=== PATIENT | male | born 1955 | race Caucasian/White ===

== ENCOUNTER 2021-05-20 11:36 | Inpatient (IN) | payer OTHER, MEDICARE ==
--- NOTE | 2021-05-20 12:05 | EDM.PDOC ---
ED HPI GENERAL MEDICAL PROBLEM - General Chief Complaint: Respiratory Problem Stated Complaint: COUGHING, CHEST CONGESTION Time Seen by Provider: 05/20/21 11:46 Source of Information: Reports: Patient History Limitations: Reports: No Limitations - History of Present Illness INITIAL COMMENTS - FREE TEXT/NARRATIVE: Patient is a 66-year-old male history of diabetes who presents today for what he describes flulike symptoms. He states he has diffuse body aches dry cough and fatigue. Symptoms have been present for 2 days. He has not take any medication for this at home. Denies any chest pain abdominal pain states he still tolerating p.o. Bilateral Chest Pain Score (Numeric/FACES): 4 - Related Data Allergies Allergy/AdvReac Type Severity Reaction Status Date / Time No Known Allergies Allergy Verified 05/20/21 11:48 Home Meds: Home Meds Buprenorphine 15 mg DAILY 05/20/21 [History] Cholecalciferol (Vitamin D3) [Vitamin D3] 1 dose PO DAILY 05/20/21 [History] Citalopram [Citalopram HBr] 20 mg PO DAILY 05/20/21 [History] Dulaglutide [Trulicity] 3 mg PO DAILY 05/20/21 [History] Fluticasone Propionate [24 Hour Allergy] 1 dose PO DAILY 05/20/21 [History] Lactobacillus Acidophilus [Acidophilus Probiotic] 1 dose PO DAILY 05/20/21 [History] Melatonin 10 mg PO DAILY 05/20/21 [History] Metoprolol Succinate 50 mg PO DAILY 05/20/21 [History] Omeprazole Magnesium 20 mg PO DAILY 05/20/21 [History] Ubidecarenone [Coenzyme Q-10] 1 dose PO DAILY 05/20/21 [History] atorvaSTATin [Lipitor] 20 mg PO DAILY 05/20/21 [History] glipiZIDE [Glucotrol XL] 10 mg PO DAILY 05/20/21 [History] lisinopriL [Lisinopril] 2.5 mg PO DAILY 05/20/21 [History] traZODone 50 mg PO DAILY 05/20/21 [History] ED ROS GENERAL - Review of Systems Review Of Systems: See Below Constitutional: Reports: Malaise, Fatigue HEENT: Reports: No Symptoms Respiratory: Reports: Cough Cardiovascular: Reports: No Symptoms Endocrine: Reports: No Symptoms GI/Abdominal: Reports: No Symptoms : Reports: No Symptoms Musculoskeletal: Reports: No Symptoms Skin: Reports: No Symptoms Neurological: Reports: No Symptoms Psychiatric: Reports: No Symptoms Hematologic/Lymphatic: Reports: No Symptoms Immunologic: Reports: No Symptoms ED EXAM, GENERAL - Physical Exam Exam: See Below Exam Limited By: No Limitations General Appearance: Alert, WD/WN, No Apparent Distress Respiratory/Chest: No Respiratory Distress, Rhonchi Cardiovascular: Normal Peripheral Pulses, Regular Rate, Rhythm GI/Abdominal: Normal Bowel Sounds, Soft, Non-Tender Back Exam: Normal Inspection Extremities: Normal Inspection, Normal Range of Motion Neurological: Alert, Oriented, Normal Cognition, Normal Gait Course - Vital Signs Last Recorded V/S: Last Vital Signs Temp 97.8 F 05/20/21 11:59 Pulse 84 05/20/21 14:21 Resp 16 05/20/21 14:21 BP 137/90 05/20/21 14:21 Pulse Ox 97 05/20/21 14:21 - Orders/Labs/Meds Orders: Active Orders 24 hr Category Date Time Status Patient Status [ADT] Routine ADT 05/20/21 15:48 Ordered CULTURE BLOOD [BC] Stat Lab 05/20/21 15:39 Ordered CULTURE BLOOD [BC] Stat Lab 05/20/21 15:39 Ordered LACTIC ACID SEPSIS W/ REFLEX [LACTATE SEPSIS W/ REFLEX] Lab 05/20/21 15:22 Received [CHEM] Routine Azithromycin [Zithromax] 500 mg Med 05/20/21 15:45 Active Sodium Chloride 0.9% [Normal Saline (AdvBag)] 250 ml IV ONETIME Sodium Chloride 0.9% [Normal Saline] 1,000 ml Med 05/20/21 13:30 Active IV ASDIRECTED Blood Culture x2 Reflex Set [OM.PC] Stat Oth 05/20/21 15:39 Ordered Medication Orders Sodium Chloride (Normal Saline) 1,000 mls @ 1,000 mls/hr IV ASDIRECTED YOKASTA Last Admin: 05/20/21 13:40 Dose: 1,000 mls/hr Documented by: EDUARDO Azithromycin 500 mg/ Sodium (Chloride) 250 mls @ 250 mls/hr IV ONETIME YOKASTA Labs: Laboratory Tests 05/20/21 05/20/21 05/20/21 Range/Units 12:11 12:11 12:11 WBC 36.64 H (4.0-11.0) K/uL RBC 4.63 (4.50-5.90) M/uL Hgb 14.6 (13.0-17.0) g/dL Hct 41.0 (38.0-50.0) % MCV 88.6 (80.0-98.0) fL MCH 31.5 (27.0-32.0) pg MCHC 35.6 (31.0-37.0) g/dL RDW Std Deviation 43.6 (28.0-62.0) fl RDW Coeff of Sakshi 14 (11.0-15.0) % Plt Count 309 (150-400) K/uL MPV 9.30 (7.40-12.00) fL Add Manual Diff YES Neutrophils % (Manual) 74 (48.0-80.0) % Band Neutrophils % 14 % Lymphocytes % (Manual) 7 L (16.0-40.0) % Monocytes % (Manual) 5 (0.0-15.0) % Nucleated RBC % 0.1 /100WBC Absolute Seg Neuts 27.1 H (1.4-5.7) Band Neutrophils # 5.1 Lymphocytes # (Manual) 2.6 H (0.6-2.4) Monocytes # (Manual) 1.8 H (0.0-0.8) Nucleated RBCs # 0 K/uL INR 1.11 APTT 27.2 (18.6-31.3) SEC Fibrinogen 430 H (215-411) mg/dL Sodium 131 L (136-148) mmol/L Potassium 5.5 H (3.5-5.1) mmol/L Chloride 96 L (98-107) mmol/L Carbon Dioxide 20.1 L (21.0-32.0) mmol/L BUN 34 H (7.0-18.0) mg/dL Creatinine 3.0 H (0.8-1.3) mg/dL Est Cr Clr Drug Dosing 25.35 mL/min Estimated GFR (MDRD) 21.1 ml/min Glucose 244 H (74-106) mg/dL Calcium 9.3 (8.5-10.1) mg/dL Total Bilirubin 1.1 H (0.2-1.0) mg/dL AST 9 L (15-37) IU/L ALT 27 (14-63) IU/L Alkaline Phosphatase 69 (46-116) U/L Troponin I < 0.050 (0.000-0.056) ng/mL Total Protein 7.7 (6.4-8.2) g/dL Albumin 4.0 (3.4-5.0) g/dL Globulin 3.7 (2.6-4.0) g/dL Albumin/Globulin Ratio 1.1 (0.9-1.6) Lipase 74 (73-393) U/L Urine Color Urine Appearance Urine pH (5.0-8.0) Ur Specific [place] (1.001-1.035) Urine Protein (NEGATIVE) mg/dL Urine Glucose (UA) (NEGATIVE) mg/dL Urine Ketones (NEGATIVE) mg/dL Urine Occult Blood (NEGATIVE) Urine Nitrite (NEGATIVE) Urine Bilirubin (NEGATIVE) Urine Urobilinogen (<2.0) EU/dL Ur Leukocyte Esterase (NEGATIVE) U Hyaline Cast (Auto) (0-2/LPF) Urine RBC (0-2/HPF) Urine WBC (0-5/HPF) Ur Epithelial Cells (NONE-FEW) Amorphous Sediment (NEGATIVE) Urine Bacteria (NEGATIVE) Urine Mucus (NONE-MOD) SARS-CoV-2 RNA (LIZA) (NEGATIVE) 05/20/21 05/20/21 Range/Units 13:40 14:45 WBC (4.0-11.0) K/uL RBC (4.50-5.90) M/uL Hgb (13.0-17.0) g/dL Hct (38.0-50.0) % MCV (80.0-98.0) fL MCH (27.0-32.0) pg MCHC (31.0-37.0) g/dL RDW Std Deviation (28.0-62.0) fl RDW Coeff of Sakshi (11.0-15.0) % Plt Count (150-400) K/uL MPV (7.40-12.00) fL Add Manual Diff Neutrophils % (Manual) (48.0-80.0) % Band Neutrophils % % Lymphocytes % (Manual) (16.0-40.0) % Monocytes % (Manual) (0.0-15.0) % Nucleated RBC % /100WBC Absolute Seg Neuts (1.4-5.7) Band Neutrophils # Lymphocytes # (Manual) (0.6-2.4) Monocytes # (Manual) (0.0-0.8) Nucleated RBCs # K/uL INR APTT (18.6-31.3) SEC Fibrinogen (215-411) mg/dL Sodium (136-148) mmol/L Potassium (3.5-5.1) mmol/L Chloride (98-107) mmol/L Carbon Dioxide (21.0-32.0) mmol/L BUN (7.0-18.0) mg/dL Creatinine (0.8-1.3) mg/dL Est Cr Clr Drug Dosing mL/min Estimated GFR (MDRD) ml/min Glucose (74-106) mg/dL Calcium (8.5-10.1) mg/dL Total Bilirubin (0.2-1.0) mg/dL AST (15-37) IU/L ALT (14-63) IU/L Alkaline Phosphatase (46-116) U/L Troponin I (0.000-0.056) ng/mL Total Protein (6.4-8.2) g/dL Albumin (3.4-5.0) g/dL Globulin (2.6-4.0) g/dL Albumin/Globulin Ratio (0.9-1.6) Lipase (73-393) U/L Urine Color YELLOW Urine Appearance CLEAR Urine pH 5.5 (5.0-8.0) Ur Specific [place] 1.025 (1.001-1.035) Urine Protein 30 H (NEGATIVE) mg/dL Urine Glucose (UA) 250 H (NEGATIVE) mg/dL Urine Ketones TRACE H (NEGATIVE) mg/dL Urine Occult Blood SMALL H (NEGATIVE) Urine Nitrite NEGATIVE (NEGATIVE) Urine Bilirubin NEGATIVE (NEGATIVE) Urine Urobilinogen 0.2 (<2.0) EU/dL Ur Leukocyte Esterase NEGATIVE (NEGATIVE) U Hyaline Cast (Auto) 1-3 (0-2/LPF) Urine RBC 2-4 (0-2/HPF) Urine WBC 0-2 (0-5/HPF) Ur Epithelial Cells FEW (NONE-FEW) Amorphous Sediment LIGHT (NEGATIVE) Urine Bacteria 1+ H (NEGATIVE) Urine Mucus LIGHT (NONE-MOD) SARS-CoV-2 RNA (LIZA) NEGATIVE (NEGATIVE) Meds: Medications Generic Name Dose Route Start Last Admin Trade Name Freq PRN Reason Stop Dose Admin Sodium Chloride 1,000 mls @ 1,000 mls/hr 05/20/21 13:30 05/20/21 13:40 Normal Saline IV 1,000 mls/hr ASDIRECTED YOKASTA Administration Azithromycin 500 mg/ Sodium 250 mls @ 250 mls/hr 05/20/21 15:45 Chloride IV ONETIME YOKASTA Discontinued Medications Generic Name Dose Route Start Last Admin Trade Name David PRN Reason Stop Dose Admin Ceftriaxone Sodium 1 gm 05/20/21 15:38 Ceftriaxone 1 Gm Vial IVPUSH 05/20/21 15:39 ONETIME ONE Sterile Water Confirm 05/20/21 15:43 Sterile Water For Injection Administered 05/20/21 15:44 Dose 20 mls @ as directed .ROUTE .STK-MED ONE Sterile Water 20 ml 05/20/21 15:44 Water For Injection, Sterile 20 Ml Sdv INJECT 05/20/21 15:45 ONETIME ONE - Re-Assessments/Exams Free Text/Narrative Re-Assessment/Exam: 05/20/21 15:[address] shows possible pneumonia as noted base. Patient Covid negative but has elevated white count will be started on antibiotics and admitted to the hospital. Departure - Departure Time of Disposition: 15:49 Disposition: Admitted As Inpatient 67 Condition: Good Clinical Impression: Pneumonia - Discharge Information *PRESCRIPTION DRUG MONITORING PROGRAM REVIEWED*: Not Applicable *COPY OF PRESCRIPTION DRUG MONITORING REPORT IN PATIENT SANJIV: Not Applicable Referrals: PCP,Not In Area [Primary Care Provider] - Forms: ED Department Discharge Sepsis Event Note (ED) - Focused Exam Vital Signs: Vital Signs Temp Pulse Resp BP Pulse Ox 05/20/21 14:21 84 16 137/90 97 05/20/21 12:50 89 16 114/86 96 05/20/21 11:59 97.8 F 91 17 130/88 94 L - My Orders Last 24 Hours: My Active Orders 05/20/21 13:30 Sodium Chloride 0.9% [Normal Saline] 1,000 ml IV ASDIRECTED 05/20/21 15:39 CULTURE BLOOD [BC] Stat CULTURE BLOOD [BC] Stat Blood Culture x2 Reflex Set [OM.PC] Stat 05/20/21 15:45 Azithromycin [Zithromax] 500 mg Sodium Chloride 0.9% [Normal Saline (AdvBag)] 250 ml IV ONETIME 05/20/21 15:48 Patient Status [ADT] Routine - Assessment/Plan Last 24 Hours: My Active Orders 05/20/21 13:30 Sodium Chloride 0.9% [Normal Saline] 1,000 ml IV ASDIRECTED 05/20/21 15:39 CULTURE BLOOD [BC] Stat CULTURE BLOOD [BC] Stat Blood Culture x2 Reflex Set [OM.PC] Stat 05/20/21 15:45 Azithromycin [Zithromax] 500 mg Sodium Chloride 0.9% [Normal Saline (AdvBag)] 250 ml IV ONETIME 05/20/21 15:48 Patient Status [ADT] Routine Plan: Patient is a 66-year-old male who presents today for flulike symptoms body aches fatigue and cough. Patient has some rhonchi but is satting 95% on room air. We will obtain labs x-ray and reassess.
[2021-05-20 12:43] LABS: BLOOD UREA NITROGEN,BUN 34 mg/dL (7.0-18.0); CARBON DIOXIDE,CO2 20.1 mmol/L (21.0-32.0); CHLORIDE,CL 96 mmol/L (98-107); GLUCOSE RANDOM 244 mg/dL (74-106); LIPASE 74 U/L (73-393); POTASSIUM,K 5.5 mmol/L (3.5-5.1); SODIUM,NA 131 mmol/L (136-148)
--- NOTE | 2021-05-20 12:46 | CR ---
INDICATION: Cough. Bilateral rhonchi. TECHNIQUE: AP portable chest. COMPARISON: None. FINDINGS: Clear lungs. Normal heart size and pulmonary vascularity. Old posterior left rib fractures. IMPRESSION: No acute cardiopulmonary process identified. Dictated by Sherif Butts MD @ 05/20/2021 12:45:05 PM (Electronically Signed)
[2021-05-20] MEDS: Sodium Chloride 0.9% 1,000 ML IV SCH (13:40)
--- NOTE | 2021-05-20 15:36 | CT ---
Indication: Elevated white count. Technique: Noncontrast CT abdomen and pelvis Comparison: No comparison Findings: Heart size normal. No pericardial effusion. No pericardial effusion. Left basilar airspace consolidation. Small effusion. Unenhanced liver gallbladder pancreas adrenal glands are unremarkable. Spleen unremarkable no abdominal aortic aneurysm. Right nephrectomy. Left kidney unremarkable Prostate gland unremarkable. Urinary bladder decompressed with wall thickening. Abundant stool in the colon No obstruction Small fat containing inguinal hernias. No suspicious bony lesions. Old left posterior rib fracture Impression: 1. Left basilar dense airspace consolidation may represent pneumonia. 2. No acute findings in the abdomen or pelvis. Please note that all CT scans at this facility use dose modulation, iterative reconstruction, and/or weight-based dosing when appropriate to reduce radiation dose to as low as reasonably achievable. Dictated by Thais Ryan MD @ 05/20/2021 3:33:42 PM (Electronically Signed)
[2021-05-20] MEDS ORDERED: cefTRIAXone 1 GM Vial IVPUSH ONE (15:38)
[2021-05-20] MEDS ORDERED: Water For Injection, Sterile 20 ML ONE (15:43)
[2021-05-20] MEDS ORDERED: Water For Injection, Sterile 20 ML SDV INJECT ONE (15:44)
[2021-05-20] MEDS ORDERED: Azithromycin 500 MG in Sodium Chloride 0.9% 250 ML IV SCH (15:45)
[2021-05-20] MEDS ORDERED: Sodium Chloride 0.9% 1,000 ML IV ONE (16:23)
--- NOTE | 2021-05-20 16:32 | PCM.HP.2 ---
H&P History of Present Illness - General Date of Service: 05/20/21 Admit Problem/Dx: Admission Diagnosis/Problem Admission Diagnosis/Problem Pneumonia - History of Present Illness Initial Comments - Free Text/Narative: 66 yo male with pmh of DM, right nephrectomy, and HTN, who presented to the ED with one week of cold symptoms and several days worth of productive cough, shortness of breath, fever, chills and pain in the left upper abdomen. Patient was noted to have a WBC of 36,000, Creatinine of 3.[address] scan that report dense left basilar consolidation. Bilateral Chest Pain Score (Numeric/FACES): 4 Head Pain Score (Numeric/FACES): 8 - Related Data Allergies/Adverse Reactions: Allergies Allergy/AdvReac Type Severity Reaction Status Date / Time No Known Allergies Allergy Verified 05/20/21 16:57 Home Medications: Home Meds Cholecalciferol (Vitamin D3) [Vitamin D3] 1 dose PO DAILY 05/20/21 [History] Citalopram [Citalopram HBr] 20 mg PO DAILY 05/20/21 [History] Dulaglutide [Trulicity] 3 mg PO DAILY 05/20/21 [History] Lactobacillus Acidophilus [Acidophilus Probiotic] 1 dose PO DAILY 05/20/21 [History] Melatonin 10 mg PO BEDTIME 05/20/21 [History] Metoprolol Succinate 50 mg PO DAILY 05/20/21 [History] Omeprazole Magnesium 20 mg PO DAILY 05/20/21 [History] atorvaSTATin [Lipitor] 20 mg PO DAILY 05/20/21 [History] glipiZIDE [Glucotrol XL] 10 mg PO DAILY 05/20/21 [History] lisinopriL [Lisinopril] 2.5 mg PO DAILY 05/20/21 [History] traZODone 50 mg PO BEDTIME 05/20/21 [History] Past Medical History Cardiovascular History: Reports: Hypertension Other Genitourinary History: Patient had right kidney removed. Endocrine/Metabolic History: Reports: Diabetes, Type II - Past Surgical History GI Surgical History: Reports: Appendectomy Musculoskeletal Surgical History: Reports: Knee Replacement, Shoulder Surgery Social & Family History - Tobacco Use Tobacco Use Status *Q: Never Tobacco User - Recreational Drug Use Recreational Drug Use: No H&P Review of Systems - Review of Systems: Review Of Systems: Comprehensive ROS is negative, except as noted in HPI. Exam - Exam Exam: See Below - Vital Signs Vital Signs: Last Vital Signs Temp 36.6 C 05/20/21 11:59 Pulse 83 05/20/21 16:00 Resp 17 05/20/21 16:00 BP 132/89 05/20/21 16:00 Pulse Ox 96 05/20/21 16:00 Weight: 108.862 kg - Exam General: Alert, Oriented HEENT: Mucosa Moist & [place] Lungs: Clear to Auscultation, Normal Respiratory Effort Cardiovascular: Regular Rate, Regular Rhythm GI/Abdominal Exam: Normal Bowel Sounds, Soft, Non-Tender Extremities: Non-Tender, No Pedal Edema Skin: Warm, Dry, Intact Neurological: Cranial Nerves Intact - Patient Data Lab Results Last 24 hrs: Laboratory Results - last 24 hr 05/20/21 05/20/21 05/20/21 Range/Units 12:11 12:11 12:11 WBC 36.64 H (4.0-11.0) K/uL RBC 4.63 (4.50-5.90) M/uL Hgb 14.6 (13.0-17.0) g/dL Hct 41.0 (38.0-50.0) % MCV 88.6 (80.0-98.0) fL MCH 31.5 (27.0-32.0) pg MCHC 35.6 (31.0-37.0) g/dL RDW Std Deviation 43.6 (28.0-62.0) fl RDW Coeff of Sakshi 14 (11.0-15.0) % Plt Count 309 (150-400) K/uL MPV 9.30 (7.40-12.00) fL Add Manual Diff YES Neutrophils % (Manual) 74 (48.0-80.0) % Band Neutrophils % 14 % Lymphocytes % (Manual) 7 L (16.0-40.0) % Monocytes % (Manual) 5 (0.0-15.0) % Nucleated RBC % 0.1 /100WBC Absolute Seg Neuts 27.1 H (1.4-5.7) Band Neutrophils # 5.1 Lymphocytes # (Manual) 2.6 H (0.6-2.4) Monocytes # (Manual) 1.8 H (0.0-0.8) Nucleated RBCs # 0 K/uL INR 1.11 APTT 27.2 (18.6-31.3) SEC Fibrinogen 430 H (215-411) mg/dL Sodium 131 L (136-148) mmol/L Potassium 5.5 H (3.5-5.1) mmol/L Chloride 96 L (98-107) mmol/L Carbon Dioxide 20.1 L (21.0-32.0) mmol/L BUN 34 H (7.0-18.0) mg/dL Creatinine 3.0 H (0.8-1.3) mg/dL Est Cr Clr Drug Dosing 25.35 mL/min Estimated GFR (MDRD) 21.1 ml/min Glucose 244 H (74-106) mg/dL Lactic Acid (0.4-2.0) mmol/L Calcium 9.3 (8.5-10.1) mg/dL Total Bilirubin 1.1 H (0.2-1.0) mg/dL AST 9 L (15-37) IU/L ALT 27 (14-63) IU/L Alkaline Phosphatase 69 (46-116) U/L Troponin I < 0.050 (0.000-0.056) ng/mL Total Protein 7.7 (6.4-8.2) g/dL Albumin 4.0 (3.4-5.0) g/dL Globulin 3.7 (2.6-4.0) g/dL Albumin/Globulin Ratio 1.1 (0.9-1.6) Lipase 74 (73-393) U/L Urine Color Urine Appearance Urine pH (5.0-8.0) Ur Specific [place] (1.001-1.035) Urine Protein (NEGATIVE) mg/dL Urine Glucose (UA) (NEGATIVE) mg/dL Urine Ketones (NEGATIVE) mg/dL Urine Occult Blood (NEGATIVE) Urine Nitrite (NEGATIVE) Urine Bilirubin (NEGATIVE) Urine Urobilinogen (<2.0) EU/dL Ur Leukocyte Esterase (NEGATIVE) U Hyaline Cast (Auto) (0-2/LPF) Urine RBC (0-2/HPF) Urine WBC (0-5/HPF) Ur Epithelial Cells (NONE-FEW) Amorphous Sediment (NEGATIVE) Urine Bacteria (NEGATIVE) Urine Mucus (NONE-MOD) Acetaminophen ug/mL SARS-CoV-2 RNA (LIZA) (NEGATIVE) 05/20/21 05/20/2121 Range/Units 12:11 13:40 14:45 WBC (4.0-11.0) K/uL RBC (4.50-5.90) M/uL Hgb (13.0-17.0) g/dL Hct (38.0-50.0) % MCV (80.0-98.0) fL MCH (27.0-32.0) pg MCHC (31.0-37.0) g/dL RDW Std Deviation (28.0-62.0) fl RDW Coeff of Sakshi (11.0-15.0) % Plt Count (150-400) K/uL MPV (7.40-12.00) fL Add Manual Diff Neutrophils % (Manual) (48.0-80.0) % Band Neutrophils % % Lymphocytes % (Manual) (16.0-40.0) % Monocytes % (Manual) (0.0-15.0) % Nucleated RBC % /100WBC Absolute Seg Neuts (1.4-5.7) Band Neutrophils # Lymphocytes # (Manual) (0.6-2.4) Monocytes # (Manual) (0.0-0.8) Nucleated RBCs # K/uL INR APTT (18.6-31.3) SEC Fibrinogen (215-411) mg/dL Sodium (136-148) mmol/L Potassium (3.5-5.1) mmol/L Chloride (98-107) mmol/L Carbon Dioxide (21.0-32.0) mmol/L BUN (7.0-18.0) mg/dL Creatinine (0.8-1.3) mg/dL Est Cr Clr Drug Dosing mL/min Estimated GFR (MDRD) ml/min Glucose (74-106) mg/dL Lactic Acid (0.4-2.0) mmol/L Calcium (8.5-10.1) mg/dL Total Bilirubin (0.2-1.0) mg/dL AST (15-37) IU/L ALT (14-63) IU/L Alkaline Phosphatase (46-116) U/L Troponin I (0.000-0.056) ng/mL Total Protein (6.4-8.2) g/dL Albumin (3.4-5.0) g/dL Globulin (2.6-4.0) g/dL Albumin/Globulin Ratio (0.9-1.6) Lipase (73-393) U/L Urine Color YELLOW Urine Appearance CLEAR Urine pH 5.5 (5.0-8.0) Ur Specific [place] 1.025 (1.001-1.035) Urine Protein 30 H (NEGATIVE) mg/dL Urine Glucose (UA) 250 H (NEGATIVE) mg/dL Urine Ketones TRACE H (NEGATIVE) mg/dL Urine Occult Blood SMALL H (NEGATIVE) Urine Nitrite NEGATIVE (NEGATIVE) Urine Bilirubin NEGATIVE (NEGATIVE) Urine Urobilinogen 0.2 (<2.0) EU/dL Ur Leukocyte Esterase NEGATIVE (NEGATIVE) U Hyaline Cast (Auto) 1-3 (0-2/LPF) Urine RBC 2-4 (0-2/HPF) Urine WBC 0-2 (0-5/HPF) Ur Epithelial Cells FEW (NONE-FEW) Amorphous Sediment LIGHT (NEGATIVE) Urine Bacteria 1+ H (NEGATIVE) Urine Mucus LIGHT (NONE-MOD) Acetaminophen <2.0 ug/mL SARS-CoV-2 RNA (LIZA) NEGATIVE (NEGATIVE) 05/20/21 Range/Units 15:22 WBC (4.0-11.0) K/uL RBC (4.50-5.90) M/uL Hgb (13.0-17.0) g/dL Hct (38.0-50.0) % MCV (80.0-98.0) fL MCH (27.0-32.0) pg MCHC (31.0-37.0) g/dL RDW Std Deviation (28.0-62.0) fl RDW Coeff of Sakshi (11.0-15.0) % Plt Count (150-400) K/uL MPV (7.40-12.00) fL Add Manual Diff Neutrophils % (Manual) (48.0-80.0) % Band Neutrophils % % Lymphocytes % (Manual) (16.0-40.0) % Monocytes % (Manual) (0.0-15.0) % Nucleated RBC % /100WBC Absolute Seg Neuts (1.4-5.7) Band Neutrophils # Lymphocytes # (Manual) (0.6-2.4) Monocytes # (Manual) (0.0-0.8) Nucleated RBCs # K/uL INR APTT (18.6-31.3) SEC Fibrinogen (215-411) mg/dL Sodium (136-148) mmol/L Potassium (3.5-5.1) mmol/L Chloride (98-107) mmol/L Carbon Dioxide (21.0-32.0) mmol/L BUN (7.0-18.0) mg/dL Creatinine (0.8-1.3) mg/dL Est Cr Clr Drug Dosing mL/min Estimated GFR (MDRD) ml/min Glucose (74-106) mg/dL Lactic Acid 3.4 H* (0.4-2.0) mmol/L Calcium (8.5-10.1) mg/dL Total Bilirubin (0.2-1.0) mg/dL AST (15-37) IU/L ALT (14-63) IU/L Alkaline Phosphatase (46-116) U/L Troponin I (0.000-0.056) ng/mL Total Protein (6.4-8.2) g/dL Albumin (3.4-5.0) g/dL Globulin (2.6-4.0) g/dL Albumin/Globulin Ratio (0.9-1.6) Lipase (73-393) U/L Urine Color Urine Appearance Urine pH (5.0-8.0) Ur Specific [place] (1.001-1.035) Urine Protein (NEGATIVE) mg/dL Urine Glucose (UA) (NEGATIVE) mg/dL Urine Ketones (NEGATIVE) mg/dL Urine Occult Blood (NEGATIVE) Urine Nitrite (NEGATIVE) Urine Bilirubin (NEGATIVE) Urine Urobilinogen (<2.0) EU/dL Ur Leukocyte Esterase (NEGATIVE) U Hyaline Cast (Auto) (0-2/LPF) Urine RBC (0-2/HPF) Urine WBC (0-5/HPF) Ur Epithelial Cells (NONE-FEW) Amorphous Sediment (NEGATIVE) Urine Bacteria (NEGATIVE) Urine Mucus (NONE-MOD) Acetaminophen ug/mL SARS-CoV-2 RNA (LIZA) (NEGATIVE) Result Diagrams: 05/21/21 02:25 05/21/21 02:25 Eusebio Results Last 24 hrs: Microbiology 05/20/21 15:55 Anaerobic Blood Culture - Final Blood - Venous Sepsis Event Note - Evaluation Sepsis Screening Result: No Definite Risk - Focused Exam Vital Signs: Vital Signs Temp Pulse Resp BP Pulse Ox 05/20/21 16:00 83 17 132/89 96 05/20/21 15:26 81 16 129/87 96 05/20/21 14:21 84 16 137/90 97 05/20/21 12:50 89 16 114/86 96 05/20/21 11:59 36.6 C 91 17 130/88 94 L - Problem List (1) Pneumonia SNOMED Code(s): 095366968 ICD Code: J18.9 - PNEUMONIA, UNSPECIFIED ORGANISM Status: Acute Current Visit: Yes (2) Kidney disease SNOMED Code(s): 79668381 ICD Code: N28.9 - DISORDER OF KIDNEY AND URETER, UNSPECIFIED Status: Acute Current Visit: Yes Problem List Initiated/Reviewed/Updated: Yes Orders Last 24hrs: Active Orders 24 hr Category Date Time Status Patient Status [ADT] Routine ADT 05/20/21 15:48 Active Antiembolic Devices [RC] PER UNIT ROUTINE Care 05/20/21 16:25 Ordered Oxygen Therapy [RC] PRN Care 05/20/21 16:25 Ordered Up ad Alba [RC] ASDIRECTED Care 05/20/21 16:24 Ordered VTE/DVT Education [RC] PER UNIT ROUTINE Care 05/20/21 16:25 Ordered Vital Signs [RC] Q4H Care 05/20/21 16:25 Ordered [employer] Diet [DIET] Diet 05/20/21 Breakfast Ordered Retroperitoneal Comp [US] Routine Exams 05/20/21 16:19 Stop Req CBC WITH AUTO DIFF [HEME] AM Lab 05/21/21 05:11 Ordered COMPREHENSIVE METABOLIC PN,CMP [CHEM] AM Lab 05/21/21 05:11 Ordered CULTURE BLOOD [BC] Stat Lab 05/20/21 15:55 Results CULTURE BLOOD [BC] Stat Lab 05/20/21 16:05 Received REFLEX LACTIC ACID YES OR NO [CHEM] Routine Lab 05/20/21 16:04 Received Azithromycin [Zithromax] Med 05/21/21 16:23 Ordered 500 mg IV Q24H Azithromycin [Zithromax] 500 mg Med 05/20/21 15:45 Active Sodium Chloride 0.9% [Normal Saline (AdvBag)] 250 ml IV ONETIME Heparin Sodium Med 05/20/21 16:30 Ordered 5,000 units SUBCUT Q12H Sodium Chloride 0.9% [Normal Saline] 1,000 ml Med 05/20/21 16:23 Ordered IV .Bolus Sodium Chloride 0.9% [Normal Saline] 1,000 ml Med 05/20/21 13:30 Active IV ASDIRECTED cefTRIAXone [Rocephin] 1 gm Med 05/21/21 16:30 Ordered Sodium Chloride 0.9% [Normal Saline] 50 ml IV Q24H Blood Culture x2 Reflex Set [OM.PC] Stat Ot 05/20/21 15:39 Ordered Sequential Compression Device [OM.PC] Per Unit Routine Oth 05/20/21 16:25 Ordered Resuscitation Status Routine Resus Stat 05/20/21 16:24 Ordered Medication Orders Azithromycin (Azithromycin 500 Mg Vial) 500 mg IV Q24H [facility] Heparin Sodium (Porcine) (Heparin Sodium 5,000 Units/Ml Vial) 5,000 units SUBCUT Q12H [facility] Sodium Chloride (Normal Saline) 1,000 mls @ 1,000 mls/hr IV ASDIRECTED [facility] Last Admin: 05/20/21 13:40 Dose: 1,000 mls/hr Documented by: SCHOLA Azithromycin 500 mg/ Sodium (Chloride) 250 mls @ 250 mls/hr IV ONETIME [facility] Last Admin: 05/20/21 16:06 Dose: 250 mls/hr Documented by: SCHOLAC Sodium Chloride (Normal Saline) 1,000 mls @ 999 mls/hr IV .Bolus ONE Stop: 05/20/21 17:23 Ceftriaxone Sodium 1 gm/ (Sodium Chloride) 50 mls @ 100 mls/hr IV Q24H [facility] Assessment/Plan Comment:: 66 yo male admitted for community acquried pneumonia CAP: will treat with rocephin and azithromycin, cultures ordered suspected ccute on chronic kidney disease: Will hydrate with IV fluids, no obstruction seen on CT.
[2021-05-20] MEDS ORDERED: Glucagon,Human Recombinant 1 MG Vial IM PRN (16:39)
[2021-05-20] MEDS ORDERED: 50% Dextrose in Water 50 ML Syringe IVPUSH PRN (16:39)
[2021-05-20] MEDS ORDERED: Pneumococcal 23-Valent Conjugate Vaccine 0.5 ML Syringe IM ONE (16:49)
[2021-05-20] MEDS: Insulin Aspart 100 Units/ML 3 ML Pen SUBCUT SCH (17:07)
[2021-05-20] MEDS: Acetaminophen 325 MG Tab PO PRN (17:30)
[2021-05-20] MEDS ORDERED: Sodium Chloride 0.9% 1,000 ML IV SCH (18:00)
[2021-05-20] MEDS: Heparin Sodium 5,000 Units/ML Vial SUBCUT SCH (20:44)
[2021-05-20] MEDS ORDERED: Sodium Chloride 0.9% 500 ML IV ONE (22:13)
[2021-05-21 03:11] LABS: CARBON DIOXIDE,CO2 23.5 mmol/L (21.0-32.0); POTASSIUM,K 4.2 mmol/L (3.5-5.1)
[2021-05-21] MEDS: Lactated Ringers 1,000 ML IV SCH ×3 (04:19→23:26)
[2021-05-21] MEDS: Insulin Aspart 100 Units/ML 3 ML Pen SUBCUT SCH ×3 (08:21→17:52)
[2021-05-21] MEDS: Heparin Sodium 5,000 Units/ML Vial SUBCUT SCH ×2 (08:27→20:50)
[2021-05-21] MEDS ORDERED: Pneumococcal 23-Valent Conjugate Vaccine 0.5 ML Syringe IM ONE (09:00)
[2021-05-21] MEDS: Albuterol/Ipratropium 3.0-0.5 MG/3 ML Neb Soln NEB SCH ×2 (10:38→13:00)
[2021-05-21] MEDS: Metoprolol Succinate 50 MG Tab.ER PO SCH (10:51)
[2021-05-21] MEDS: atorvaSTATin 20 MG Tab PO SCH (10:52)
[2021-05-21] MEDS: Citalopram 20 MG Tab PO SCH (10:52)
[2021-05-21] MEDS: Sodium Chloride 0.9% 1,000 ML IV SCH (11:48)
[2021-05-21] MEDS ORDERED: Ipratropium 0.02% 0.5 MG/2.5 ML Neb Soln NEB PRN (14:34)
[2021-05-21] MEDS: Morphine 2 MG/ML SYRINGE IVPUSH PRN (15:24)
[2021-05-21] MEDS ORDERED: cefTRIAXone 1 GM in Sodium Chloride 0.9% 50 ML IV SCH (15:30)
--- NOTE | 2021-05-21 15:38 | PCM.PN ---
<Diane Trotter - Last Filed: 05/21/21 15:33> - General Info Date of Service: 05/21/21 Subjective Update: The patient is a 66-year-old male with a significant past medical history of hypertension, diabetes mellitus, and a right nephrectomy, who was admitted due to community acquired pneumonia. Upon interview today the patient admits his breathing is much better and he is coughing less sputum than previously which is clear in color. However, the patient is complaining of thoracic level back pain which is 7 out of 10 in intensity, dull in nature, and nonradiating. - Review of Systems General: Denies: Fever, Fatigue, Chills Pulmonary: Reports: Cough. Denies: Shortness of Breath, Pleuritic Chest Pain Cardiovascular: Denies: Chest Pain, Palpitations Gastrointestinal: Denies: Abdominal Pain, Diarrhea, Nausea, Vomiting Musculoskeletal: Reports: Back Pain - Patient Data Vitals - Most Recent: Last Vital Signs Temp 98.8 F 05/21/21 07:51 Pulse 78 05/21/21 10:51 Resp 16 05/21/21 07:51 BP 139/90 05/21/21 10:51 Pulse Ox 94 L 05/21/21 07:51 Weight - Most Recent: 104.236 kg I&O - Last 24 Hours: Intake & Output 05/21/21 05/21/21 05/21/21 06:59 14:59 22:59 Intake Total 2650 Output Total 1250 Balance 1400 Lab Results Last 24 Hours: Laboratory Results - last 24 hr 05/20/21 05/20/21 05/20/21 Range/Units 12:11 15:22 16:54 WBC (4.0-11.0) K/uL RBC (4.50-5.90) M/uL Hgb (13.0-17.0) g/dL Hct (38.0-50.0) % MCV (80.0-98.0) fL MCH (27.0-32.0) pg MCHC (31.0-37.0) g/dL RDW Std Deviation (28.0-62.0) fl RDW Coeff of Sakshi (11.0-15.0) % Plt Count (150-400) K/uL MPV (7.40-12.00) fL Add Manual Diff Neutrophils % (Manual) (48.0-80.0) % Band Neutrophils % % Lymphocytes % (Manual) (16.0-40.0) % Monocytes % (Manual) (0.0-15.0) % Metamyelocytes % % Nucleated RBC % /100WBC Absolute Seg Neuts (1.4-5.7) Band Neutrophils # Lymphocytes # (Manual) (0.6-2.4) Monocytes # (Manual) (0.0-0.8) Absolute Metamyelocyte Nucleated RBCs # K/uL Sodium (136-148) mmol/L Potassium (3.5-5.1) mmol/L Chloride (98-107) mmol/L Carbon Dioxide (21.0-32.0) mmol/L BUN (7.0-18.0) mg/dL Creatinine (0.8-1.3) mg/dL Est Cr Clr Drug Dosing mL/min Estimated GFR (MDRD) ml/min Glucose (74-106) mg/dL POC Glucose 184 H (70-99) mg/dL Lactic Acid 3.4 H* (0.4-2.0) mmol/L Calcium (8.5-10.1) mg/dL Total Bilirubin (0.2-1.0) mg/dL AST (15-37) IU/L ALT (14-63) IU/L Alkaline Phosphatase (46-116) U/L Total Protein (6.4-8.2) g/dL Albumin (3.4-5.0) g/dL Globulin (2.6-4.0) g/dL Albumin/Globulin Ratio (0.9-1.6) Acetaminophen <2.0 ug/mL 05/20/21 05/21/21 05/21/21 Range/Units 20:23 02:25 02:25 WBC 27.16 H (4.0-11.0) K/uL RBC 3.94 L (4.50-5.90) M/uL Hgb 12.2 L (13.0-17.0) g/dL Hct 35.0 L (38.0-50.0) % MCV 88.8 (80.0-98.0) fL MCH 31.0 (27.0-32.0) pg MCHC 34.9 (31.0-37.0) g/dL RDW Std Deviation 44.1 (28.0-62.0) fl RDW Coeff of Sakshi 14 (11.0-15.0) % Plt Count 255 (150-400) K/uL MPV 9.20 (7.40-12.00) fL Add Manual Diff YES Neutrophils % (Manual) 86 H (48.0-80.0) % Band Neutrophils % 7 % Lymphocytes % (Manual) 2 L (16.0-40.0) % Monocytes % (Manual) 3 (0.0-15.0) % Metamyelocytes % 2 % Nucleated RBC % 0.0 /100WBC Absolute Seg Neuts 23.4 H (1.4-5.7) Band Neutrophils # 1.9 Lymphocytes # (Manual) 0.5 L (0.6-2.4) Monocytes # (Manual) 0.8 (0.0-0.8) Absolute Metamyelocyte 0.5 Nucleated RBCs # 0 K/uL Sodium 135 L (136-148) mmol/L Potassium 4.2 (3.5-5.1) mmol/L Chloride 101 (98-107) mmol/L Carbon Dioxide 23.5 (21.0-32.0) mmol/L BUN 30 H (7.0-18.0) mg/dL Creatinine 2.4 H (0.8-1.3) mg/dL Est Cr Clr Drug Dosing 31.68 mL/min Estimated GFR (MDRD) 27.3 ml/min Glucose 150 H (74-106) mg/dL POC Glucose (70-99) mg/dL Lactic Acid 2.4 H* (0.4-2.0) mmol/L Calcium 8.7 (8.5-10.1) mg/dL Total Bilirubin 0.6 (0.2-1.0) mg/dL AST 12 L (15-37) IU/L ALT 21 (14-63) IU/L Alkaline Phosphatase 59 (46-116) U/L Total Protein 6.7 (6.4-8.2) g/dL Albumin 3.2 L (3.4-5.0) g/dL Globulin 3.5 (2.6-4.0) g/dL Albumin/Globulin Ratio 0.9 (0.9-1.6) Acetaminophen ug/mL 05/21/21 05/21/21 Range/Units 02:25 06:21 WBC (4.0-11.0) K/uL RBC (4.50-5.90) M/uL Hgb (13.0-17.0) g/dL Hct (38.0-50.0) % MCV (80.0-98.0) fL MCH (27.0-32.0) pg MCHC (31.0-37.0) g/dL RDW Std Deviation (28.0-62.0) fl RDW Coeff of Sakshi (11.0-15.0) % Plt Count (150-400) K/uL MPV (7.40-12.00) fL Add Manual Diff Neutrophils % (Manual) (48.0-80.0) % Band Neutrophils % % Lymphocytes % (Manual) (16.0-40.0) % Monocytes % (Manual) (0.0-15.0) % Metamyelocytes % % Nucleated RBC % /100WBC Absolute Seg Neuts (1.4-5.7) Band Neutrophils # Lymphocytes # (Manual) (0.6-2.4) Monocytes # (Manual) (0.0-0.8) Absolute Metamyelocyte Nucleated RBCs # K/uL Sodium (136-148) mmol/L Potassium (3.5-5.1) mmol/L Chloride (98-107) mmol/L Carbon Dioxide (21.0-32.0) mmol/L BUN (7.0-18.0) mg/dL Creatinine (0.8-1.3) mg/dL Est Cr Clr Drug Dosing mL/min Estimated GFR (MDRD) ml/min Glucose (74-106) mg/dL POC Glucose 153 H (70-99) mg/dL Lactic Acid 1.4 (0.4-2.0) mmol/L Calcium (8.5-10.1) mg/dL Total Bilirubin (0.2-1.0) mg/dL AST (15-37) IU/L ALT (14-63) IU/L Alkaline Phosphatase (46-116) U/L Total Protein (6.4-8.2) g/dL Albumin (3.4-5.0) g/dL Globulin (2.6-4.0) g/dL Albumin/Globulin Ratio (0.9-1.6) Acetaminophen ug/mL Eusebio Results Last 24 Hours: Microbiology 05/20/21 15:55 Anaerobic Blood Culture - Final Blood - Venous Med Orders - Current: Current Medications Acetaminophen (Acetaminophen 325 Mg Tab) 325 mg PO Q6H PRN PRN Reason: Pain Last Admin: 05/20/21 17:30 Dose: 325 mg Documented by: Acidophilus/Pectin (Acidophilus With [place] Pectin Tab) 1 tab PO DAILY [facility] Atorvastatin Calcium (Atorvastatin 20 Mg Tab) 20 mg PO DAILY [facility] Last Admin: 05/21/21 10:52 Dose: 20 mg Documented by: Citalopram Hydrobromide (Citalopram 20 Mg Tab) 20 mg PO DAILY [facility] Last Admin: 05/21/21 10:52 Dose: 20 mg Documented by: Dextrose/Water (50% Dextrose In Water 50 Ml Syringe) 50 ml IVPUSH ASDIRECTED PRN PRN Reason: Hypoglycemia Glucagon (Glucagon,Human Recombinant 1 Mg Vial) 1 mg IM ASDIRECTED PRN PRN Reason: Hypoglycemia Heparin Sodium (Porcine) (Heparin Sodium 5,000 Units/Ml Vial) 5,000 units SUBCUT Q12H [facility] Last Admin: 05/21/21 08:27 Dose: 5,000 units Documented by: Sodium Chloride (Normal Saline) 1,000 mls @ 1,000 mls/hr IV ASDIRECTED [facility] Last Infusion: 05/20/21 14:40 Dose: Infused Documented by: Ceftriaxone Sodium/Dextrose (Rocephin In Dextrose,Iso-Osm 1 Gm/50 Ml) 50 mls @ 100 mls/hr IV Q24H [facility] Last Admin: 05/21/21 15:24 Dose: 100 mls/hr Documented by: Azithromycin 500 mg/ Sodium (Chloride) 250 mls @ 250 mls/hr IV Q24H [facility] Lactated Ringer's (Ringers, Lactated) 1,000 mls @ 125 mls/hr IV ASDIRECTED [facility] Last Admin: 05/21/21 11:51 Dose: 125 mls/hr Documented by: Insulin Aspart (Insulin Aspart 100 Units/Ml 3 Ml Pen) 0 unit SUBCUT TIDAC [facility]; Protocol Last Admin: 05/21/21 11:47 Dose: 1 unit Documented by: Ipratropium [place] (Ipratropium 0.02% 0.5 Mg/2.5 Ml Neb Soln) 0.5 mg NEB Q6H [employer] PRN PRN Reason: wheezing/dyspnea Melatonin (Melatonin 3 Mg Tab) 9 mg PO BEDTIME [facility] Metoprolol Succinate (Metoprolol Succinate 50 Mg Tab.Er) 50 mg PO DAILY [facility] Last Admin: 05/21/21 10:51 Dose: 50 mg Documented by: Morphine Sulfate (Morphine 2 Mg/Ml Syringe) 1 mg IVPUSH Q4H PRN PRN Reason: Pain Last Admin: 05/21/21 15:24 Dose: 1 mg Documented by: Trazodone HCl (Trazodone 50 Mg Tab) 50 mg PO BEDTIME [facility] Discontinued Medications Albuterol/Ipratropium (Albuterol/Ipratropium 3.0-0.5 Mg/3 Ml Neb Soln) 3 ml NEB Q4HRRT [facility] Last Admin: 05/21/21 13:00 Dose: 3 ml Documented by: Azithromycin (Azithromycin 500 Mg Vial) 500 mg IV Q24H [facility] Ceftriaxone Sodium (Ceftriaxone 1 Gm Vial) 1 gm IVPUSH ONETIME ONE Stop: 05/20/21 15:39 Last Admin: 05/20/21 16:05 Dose: 1 gm Documented by: Azithromycin 500 mg/ Sodium (Chloride) 250 mls @ 250 mls/hr IV ONETIME [facility] Last Admin: 05/20/21 16:06 Dose: 250 mls/hr Documented by: Sterile Water (Sterile Water For Injection) Confirm Administered Dose 20 mls @ as directed .ROUTE .STK-MED ONE Stop: 05/20/21 15:44 Last Admin: 05/20/21 15:56 Dose: Not Given Documented by: Sodium Chloride (Normal Saline) 1,000 mls @ 999 mls/hr IV .Bolus ONE Stop: 05/20/21 17:23 Last Admin: 05/20/21 17:07 Dose: 999 mls/hr Documented by: Ceftriaxone Sodium 1 gm/ (Sodium Chloride) 50 mls @ 100 mls/hr IV Q24H [facility] Sodium Chloride (Normal Saline) 1,000 mls @ 125 mls/hr IV ASDIRECTED [facility] Last Admin: 05/20/21 17:09 Dose: 125 mls/hr Documented by: Sodium Chloride (Normal Saline) 500 mls @ 999 mls/hr IV BOLUS ONE Stop: 05/20/21 22:43 Last Admin: 05/20/21 23:02 Dose: 999 mls/hr Documented by: Pneumococcal Polyvalent Vaccine (Pneumococcal 23-Valent Conjugate Vaccine 0.5 Ml Syringe) 25 mcg IM .ONCE ONE Stop: 05/21/21 09:01 Sterile Water (Water For Injection, Sterile 20 Ml Sdv) 20 ml INJECT ONETIME ONE Stop: 05/20/21 15:45 Last Admin: 05/20/21 16:05 Dose: 20 ml Documented by: - Exam General: Alert, Oriented, Cooperative Lungs: Rhonchi, Wheezing Cardiovascular: Regular Rate, Regular Rhythm, No Murmurs GI/Abdominal Exam: Normal Bowel Sounds, Soft, Non-Tender - Patient Data Lab Results Last 24 hrs: Laboratory Results - last 24 hr 05/20/21 05/20/21 05/20/21 Range/Units 12:11 15:22 16:54 WBC (4.0-11.0) K/uL RBC (4.50-5.90) M/uL Hgb (13.0-17.0) g/dL Hct (38.0-50.0) % MCV (80.0-98.0) fL MCH (27.0-32.0) pg MCHC (31.0-37.0) g/dL RDW Std Deviation (28.0-62.0) fl RDW Coeff of Sakshi (11.0-15.0) % Plt Count (150-400) K/uL MPV (7.40-12.00) fL Add Manual Diff Neutrophils % (Manual) (48.0-80.0) % Band Neutrophils % % Lymphocytes % (Manual) (16.0-40.0) % Monocytes % (Manual) (0.0-15.0) % Metamyelocytes % % Nucleated RBC % /100WBC Absolute Seg Neuts (1.4-5.7) Band Neutrophils # Lymphocytes # (Manual) (0.6-2.4) Monocytes # (Manual) (0.0-0.8) Absolute Metamyelocyte Nucleated RBCs # K/uL Sodium (136-148) mmol/L Potassium (3.5-5.1) mmol/L Chloride (98-107) mmol/L Carbon Dioxide (21.0-32.0) mmol/L BUN (7.0-18.0) mg/dL Creatinine (0.8-1.3) mg/dL Est Cr Clr Drug Dosing mL/min Estimated GFR (MDRD) ml/min Glucose (74-106) mg/dL POC Glucose 184 H (70-99) mg/dL Lactic Acid 3.4 H* (0.4-2.0) mmol/L Calcium (8.5-10.1) mg/dL Total Bilirubin (0.2-1.0) mg/dL AST (15-37) IU/L ALT (14-63) IU/L Alkaline Phosphatase (46-116) U/L Total Protein (6.4-8.2) g/dL Albumin (3.4-5.0) g/dL Globulin (2.6-4.0) g/dL Albumin/Globulin Ratio (0.9-1.6) Acetaminophen <2.0 ug/mL 05/20/21 05/21/21 05/21/21 Range/Units 20:23 02:25 02:25 WBC 27.16 H (4.0-11.0) K/uL RBC 3.94 L (4.50-5.90) M/uL Hgb 12.2 L (13.0-17.0) g/dL Hct 35.0 L (38.0-50.0) % MCV 88.8 (80.0-98.0) fL MCH 31.0 (27.0-32.0) pg MCHC 34.9 (31.0-37.0) g/dL RDW Std Deviation 44.1 (28.0-62.0) fl RDW Coeff of Sakshi 14 (11.0-15.0) % Plt Count 255 (150-400) K/uL MPV 9.20 (7.40-12.00) fL Add Manual Diff YES Neutrophils % (Manual) 86 H (48.0-80.0) % Band Neutrophils % 7 % Lymphocytes % (Manual) 2 L (16.0-40.0) % Monocytes % (Manual) 3 (0.0-15.0) % Metamyelocytes % 2 % Nucleated RBC % 0.0 /100WBC Absolute Seg Neuts 23.4 H (1.4-5.7) Band Neutrophils # 1.9 Lymphocytes # (Manual) 0.5 L (0.6-2.4) Monocytes # (Manual) 0.8 (0.0-0.8) Absolute Metamyelocyte 0.5 Nucleated RBCs # 0 K/uL Sodium 135 L (136-148) mmol/L Potassium 4.2 (3.5-5.1) mmol/L Chloride 101 (98-107) mmol/L Carbon Dioxide 23.5 (21.0-32.0) mmol/L BUN 30 H (7.0-18.0) mg/dL Creatinine 2.4 H (0.8-1.3) mg/dL Est Cr Clr Drug Dosing 31.68 mL/min Estimated GFR (MDRD) 27.3 ml/min Glucose 150 H (74-106) mg/dL POC Glucose (70-99) mg/dL Lactic Acid 2.4 H* (0.4-2.0) mmol/L Calcium 8.7 (8.5-10.1) mg/dL Total Bilirubin 0.6 (0.2-1.0) mg/dL AST 12 L (15-37) IU/L ALT 21 (14-63) IU/L Alkaline Phosphatase 59 (46-116) U/L Total Protein 6.7 (6.4-8.2) g/dL Albumin 3.2 L (3.4-5.0) g/dL Globulin 3.5 (2.6-4.0) g/dL Albumin/Globulin Ratio 0.9 (0.9-1.6) Acetaminophen ug/mL 05/21/21 05/21/21 Range/Units 02:25 06:21 WBC (4.0-11.0) K/uL RBC (4.50-5.90) M/uL Hgb (13.0-17.0) g/dL Hct (38.0-50.0) % MCV (80.0-98.0) fL MCH (27.0-32.0) pg MCHC (31.0-37.0) g/dL RDW Std Deviation (28.0-62.0) fl RDW Coeff of Sakshi (11.0-15.0) % Plt Count (150-400) K/uL MPV (7.40-12.00) fL Add Manual Diff Neutrophils % (Manual) (48.0-80.0) % Band Neutrophils % % Lymphocytes % (Manual) (16.0-40.0) % Monocytes % (Manual) (0.0-15.0) % Metamyelocytes % % Nucleated RBC % /100WBC Absolute Seg Neuts (1.4-5.7) Band Neutrophils # Lymphocytes # (Manual) (0.6-2.4) Monocytes # (Manual) (0.0-0.8) Absolute Metamyelocyte Nucleated RBCs # K/uL Sodium (136-148) mmol/L Potassium (3.5-5.1) mmol/L Chloride (98-107) mmol/L Carbon Dioxide (21.0-32.0) mmol/L BUN (7.0-18.0) mg/dL Creatinine (0.8-1.3) mg/dL Est Cr Clr Drug Dosing mL/min Estimated GFR (MDRD) ml/min Glucose (74-106) mg/dL POC Glucose 153 H (70-99) mg/dL Lactic Acid 1.4 (0.4-2.0) mmol/L Calcium (8.5-10.1) mg/dL Total Bilirubin (0.2-1.0) mg/dL AST (15-37) IU/L ALT (14-63) IU/L Alkaline Phosphatase (46-116) U/L Total Protein (6.4-8.2) g/dL Albumin (3.4-5.0) g/dL Globulin (2.6-4.0) g/dL Albumin/Globulin Ratio (0.9-1.6) Acetaminophen ug/mL Result Diagrams: 05/21/21 02:25 05/21/21 02:25 Eusebio Results Last 24 hrs: Microbiology 05/20/21 15:55 Anaerobic Blood Culture - Final Blood - Venous Sepsis Event Note - Evaluation Sepsis Screening Result: Possible Sepsis Risk - Focused Exam Vital Signs: Vital Signs Temp Pulse Pulse Resp BP BP Pulse Ox 05/21/21 10:51 78 139/90 05/21/21 07:51 98.8 F 78 16 139/90 94 L 05/21/21 04:13 99 F 73 17 140/76 96 - Problem List & Annotations (1) Back pain of thoracolumbar region SNOMED Code(s): 879438477 Code(s): M54.5 - LOW BACK PAIN; M54.6 - PAIN IN THORACIC SPINE Status: A cute Current Visit: Yes (2) Kidney disease SNOMED Code(s): 38689915 Code(s): N28.9 - DISORDER OF KIDNEY AND URETER, UNSPECIFIED Status: Acute Current Visit: Yes (3) Pneumonia SNOMED Code(s): 799751704 Code(s): J18.9 - PNEUMONIA, UNSPECIFIED ORGANISM Status: Acute Current Visit: Yes - Problem List Review Problem List Initiated/Reviewed/Updated: Yes - My Orders Last 24 Hours: My Active Orders 05/21/21 15:02 Morphine 1 mg IVPUSH Q4H PRN 05/22/21 05:11 CBC WITH AUTO DIFF [HEME] AM CMP [COMPREHENSIVE METABOLIC PN,CMP] [CHEM] AM 05/23/21 05:11 CBC WITH AUTO DIFF [HEME] AM CMP [COMPREHENSIVE METABOLIC PN,CMP] [CHEM] AM - Plan Plan:: 1. Community-acquired pneumonia -Continue the patient on ceftriaxone 1 g IV every 24 hours, and continue azithromycin 500 mg IV every 24 hours -Continue to monitor patient's white blood cell status through daily CBC until an appropriate level for discharge -Continue the patient on DuoNeb therapy, every 4 hours 2. Kidney disease -The patient has an elevated BUN as well as creatinine level. The patient is on fluids, 1000 mL at 125 mL/h we will continue to monitor renal function through daily CMP's 3. Thoracic level back pain -The patient has been given a prescription for IV morphine 1 g every 4 hours <Roseline Weber - Last Filed: 05/22/21 15:19> - Patient Data Vitals - Most Recent: Last Vital Signs Temp 36.4 C 05/22/21 12:03 Pulse 65 05/22/21 08:53 Resp 18 05/22/21 12:03 BP 147/77 H 05/22/21 12:03 Pulse Ox 95 05/22/21 12:03 I&O - Last 24 Hours: Intake & Output 05/22/21 05/22/21 05/22/21 06:59 14:59 22:59 Intake Total 4473 Output Total 2900 1400 Balance 1573 -1400 Lab Results Last 24 Hours: Laboratory Results - last 24 hr 05/21/21 05/22/21 05/22/21 Range/Units 17:26 05:47 05:47 WBC 19.10 H (4.0-11.0) K/uL RBC 3.65 L (4.50-5.90) M/uL Hgb 11.2 L (13.0-17.0) g/dL Hct 32.5 L (38.0-50.0) % MCV 89.0 (80.0-98.0) fL MCH 30.7 (27.0-32.0) pg MCHC 34.5 (31.0-37.0) g/dL RDW Std Deviation 44.3 (28.0-62.0) fl RDW Coeff of Sakshi 14 (11.0-15.0) % Plt Count 269 (150-400) K/uL MPV 9.80 (7.40-12.00) fL Neut % (Auto) 82.7 H (48.0-80.0) % Lymph % (Auto) 9.2 L (16.0-40.0) % [place] % (Auto) 7.1 (0.0-15.0) % Eos % (Auto) 0.8 (0.0-7.0) % Baso % (Auto) 0.2 (0.0-1.5) % Neut # (Auto) 15.8 H (1.4-5.7) K/uL Lymph # (Auto) 1.8 (0.6-2.4) K/uL [place] # (Auto) 1.4 H (0.0-0.8) K/uL Eos # (Auto) 0.2 (0.0-0.7) K/uL Baso # (Auto) 0.0 (0.0-0.1) K/uL Nucleated RBC % 0.0 /100WBC Nucleated RBCs # 0 K/uL Sodium Cancelled Potassium Cancelled Chloride Cancelled Carbon Dioxide Cancelled BUN Cancelled Creatinine Cancelled Est Cr Clr Drug Dosing Cancelled Estimated GFR (MDRD) Cancelled Glucose Cancelled POC Glucose 174 H (70-99) mg/dL Calcium Cancelled Total Bilirubin Cancelled AST Cancelled ALT Cancelled Alkaline Phosphatase Cancelled Total Protein Cancelled Albumin Cancelled Globulin Cancelled Albumin/Globulin Ratio Cancelled 05/22/21 05/22/21 Range/Units 06:29 11:36 WBC (4.0-11.0) K/uL RBC (4.50-5.90) M/uL Hgb (13.0-17.0) g/dL Hct (38.0-50.0) % MCV (80.0-98.0) fL MCH (27.0-32.0) pg MCHC (31.0-37.0) g/dL RDW Std Deviation (28.0-62.0) fl RDW Coeff of Sakshi (11.0-15.0) % Plt Count (150-400) K/uL MPV (7.40-12.00) fL Neut % (Auto) (48.0-80.0) % Lymph % (Auto) (16.0-40.0) % [place] % (Auto) (0.0-15.0) % Eos % (Auto) (0.0-7.0) % Baso % (Auto) (0.0-1.5) % Neut # (Auto) (1.4-5.7) K/uL Lymph # (Auto) (0.6-2.4) K/uL [place] # (Auto) (0.0-0.8) K/uL Eos # (Auto) (0.0-0.7) K/uL Baso # (Auto) (0.0-0.1) K/uL Nucleated RBC % /100WBC Nucleated RBCs # K/uL Sodium Potassium Chloride Carbon Dioxide BUN Creatinine Est Cr Clr Drug Dosing Estimated GFR (MDRD) Glucose POC Glucose 147 H 190 H (70-99) mg/dL Calcium Total Bilirubin AST ALT Alkaline Phosphatase Total Protein Albumin Globulin Albumin/Globulin Ratio Eusebio Results Last 24 Hours: Microbiology 05/20/21 16:05 Aerobic Blood Culture - Preliminary Blood - Venous - Lab Draw NO GROWTH AFTER 1 DAY Anaerobic Blood Culture - Preliminary NO GROWTH AFTER 1 DAY 05/20/21 15:55 Aerobic Blood Culture - Preliminary Blood - Venous NO GROWTH AFTER 1 DAY Anaerobic Blood Culture - Final Med Orders - Current: Current Medications Acetaminophen (Acetaminophen 325 Mg Tab) 325 mg PO Q6H PRN PRN Reason: Pain Last Admin: 05/20/21 17:30 Dose: 325 mg Documented by: Acidophilus/Pectin (Acidophilus With [place] Pectin Tab) 1 tab PO DAILY [facility] Last Admin: 05/22/21 08:51 Dose: 1 tab Documented by: Atorvastatin Calcium (Atorvastatin 20 Mg Tab) 20 mg PO DAILY [facility] Last Admin: 05/22/21 08:52 Dose: 20 mg Documented by: Citalopram Hydrobromide (Citalopram 20 Mg Tab) 20 mg PO DAILY [facility] Last Admin: 05/22/21 08:54 Dose: 20 mg Documented by: Dextrose/Water (50% Dextrose In Water 50 Ml Syringe) 50 ml IVPUSH ASDIRECTED PRN PRN Reason: Hypoglycemia Diltiazem HCl (Diltiazem 25 Mg/5 Ml Sdv) 20 mg IVPUSH Q4H PRN PRN Reason: Tachycardia Last Admin: 05/21/21 22:26 Dose: 20 mg Documented by: Glucagon (Glucagon,Human Recombinant 1 Mg Vial) 1 mg IM ASDIRECTED PRN PRN Reason: Hypoglycemia Guaifenesin/Codeine Phosphate (Codeine/Guaifenesin 10-100 Mg/5 Ml Syrup 5 Ml Cup) 10 ml PO Q6H PRN PRN Reason: Cough Last Admin: 05/22/21 14:56 Dose: 10 ml Documented by: Heparin Sodium (Porcine) (Heparin Sodium 5,000 Units/Ml Vial) 5,000 units SUBCUT Q12H [facility] Last Admin: 05/22/21 08:56 Dose: 5,000 units Documented by: Sodium Chloride (Normal Saline) 1,000 mls @ 1,000 mls/hr IV ASDIRECTED [facility] Last Infusion: 05/20/21 14:40 Dose: Infused Documented by: Ceftriaxone Sodium/Dextrose (Rocephin In Dextrose,Iso-Osm 1 Gm/50 Ml) 50 mls @ 100 mls/hr IV Q24H [facility] Last Admin: 05/22/21 14:57 Dose: 100 mls/hr Documented by: Azithromycin 500 mg/ Sodium (Chloride) 250 mls @ 250 mls/hr IV Q24H [facility] Last Admin: 05/21/21 16:17 Dose: 250 mls/hr Documented by: Insulin Aspart (Insulin Aspart 100 Units/Ml 3 Ml Pen) 0 unit SUBCUT TIDAC [facility]; Protocol Last Admin: 05/22/21 11:56 Dose: 1 unit Documented by: Ipratropium [place] (Ipratropium 0.02% 0.5 Mg/2.5 Ml Neb Soln) 0.5 mg NEB Q6HRRT PRN PRN Reason: wheezing/dyspnea Melatonin (Melatonin 3 Mg Tab) 9 mg PO BEDTIME [facility] Last Admin: 05/21/21 20:50 Dose: 9 mg Documented by: Metoprolol Succinate (Metoprolol Succinate 50 Mg Tab.Er) 50 mg PO DAILY [facility] Last Admin: 05/22/21 08:53 Dose: 50 mg Documented by: Morphine Sulfate (Morphine 2 Mg/Ml Syringe) 1 mg IVPUSH Q4H PRN PRN Reason: Pain Last Admin: 05/22/21 13:17 Dose: 1 mg Documented by: Trazodone HCl (Trazodone 50 Mg Tab) 50 mg PO BEDTIME [facility] Last Admin: 05/21/21 20:50 Dose: 50 mg Documented by: Discontinued Medications Albuterol/Ipratropium (Albuterol/Ipratropium 3.0-0.5 Mg/3 Ml Neb Soln) 3 ml NEB Q4HRRT [facility] Last Admin: 05/21/21 13:00 Dose: 3 ml Documented by: Azithromycin (Azithromycin 500 Mg Vial) 500 mg IV Q24H [facility] Ceftriaxone Sodium (Ceftriaxone 1 Gm Vial) 1 gm IVPUSH ONETIME ONE Stop: 05/20/21 15:39 Last Admin: 05/20/21 16:05 Dose: 1 gm Documented by: Azithromycin 500 mg/ Sodium (Chloride) 250 mls @ 250 mls/hr IV ONETIME [facility] Last Admin: 05/20/21 16:06 Dose: 250 mls/hr Documented by: Sterile Water (Sterile Water For Injection) Confirm Administered Dose 20 mls @ as directed .ROUTE .STK-MED ONE Stop: 05/20/21 15:44 Last Admin: 05/20/21 15:56 Dose: Not Given Documented by: Sodium Chloride (Normal Saline) 1,000 mls @ 999 mls/hr IV .Bolus ONE Stop: 05/20/21 17:23 Last Admin: 05/20/21 17:07 Dose: 999 mls/hr Documented by: Ceftriaxone Sodium 1 gm/ (Sodium Chloride) 50 mls @ 100 mls/hr IV Q24H [facility] Sodium Chloride (Normal Saline) 1,000 mls @ 125 mls/hr IV ASDIRECTED [facility] Last Admin: 05/20/21 17:09 Dose: 125 mls/hr Documented by: Sodium Chloride (Normal Saline) 500 mls @ 999 mls/hr IV BOLUS ONE Stop: 05/20/21 22:43 Last Admin: 05/20/21 23:02 Dose: 999 mls/hr Documented by: Lactated Ringer's (Ringers, Lactated) 1,000 mls @ 125 mls/hr IV ASDIRECTED [facility] Last Admin: 05/22/21 07:35 Dose: 125 mls/hr Documented by: Metoprolol Tartrate (Metoprolol Tartrate 50 Mg Tab) 50 mg PO ONETIME ONE Stop: 05/21/21 23:11 Last Admin: 05/21/21 23:36 Dose: 50 mg Documented by: Pneumococcal Polyvalent Vaccine (Pneumococcal 23-Valent Conjugate Vaccine 0.5 Ml Syringe) 25 mcg IM .ONCE ONE Stop: 05/21/21 09:01 Sterile Water (Water For Injection, Sterile 20 Ml Sdv) 20 ml INJECT ONETIME ONE Stop: 05/20/21 15:45 Last Admin: 05/20/21 16:05 Dose: 20 ml Documented by: - Patient Data Lab Results Last 24 hrs: Laboratory Results - last 24 hr 05/21/21 05/22/21 05/22/21 Range/Units 17:26 05:47 05:47 WBC 19.10 H (4.0-11.0) K/uL RBC 3.65 L (4.50-5.90) M/uL Hgb 11.2 L (13.0-17.0) g/dL Hct 32.5 L (38.0-50.0) % MCV 89.0 (80.0-98.0) fL MCH 30.7 (27.0-32.0) pg MCHC 34.5 (31.0-37.0) g/dL RDW Std Deviation 44.3 (28.0-62.0) fl RDW Coeff of Sakshi 14 (11.0-15.0) % Plt Count 269 (150-400) K/uL MPV 9.80 (7.40-12.00) fL Neut % (Auto) 82.7 H (48.0-80.0) % Lymph % (Auto) 9.2 L (16.0-40.0) % [place] % (Auto) 7.1 (0.0-15.0) % Eos % (Auto) 0.8 (0.0-7.0) % Baso % (Auto) 0.2 (0.0-1.5) % Neut # (Auto) 15.8 H (1.4-5.7) K/uL Lymph # (Auto) 1.8 (0.6-2.4) K/uL [place] # (Auto) 1.4 H (0.0-0.8) K/uL Eos # (Auto) 0.2 (0.0-0.7) K/uL Baso # (Auto) 0.0 (0.0-0.1) K/uL Nucleated RBC % 0.0 /100WBC Nucleated RBCs # 0 K/uL Sodium Cancelled Potassium Cancelled Chloride Cancelled Carbon Dioxide Cancelled BUN Cancelled Creatinine Cancelled Est Cr Clr Drug Dosing Cancelled Estimated GFR (MDRD) Cancelled Glucose Cancelled POC Glucose 174 H (70-99) mg/dL Calcium Cancelled Total Bilirubin Cancelled AST Cancelled ALT Cancelled Alkaline Phosphatase Cancelled Total Protein Cancelled Albumin Cancelled Globulin Cancelled Albumin/Globulin Ratio Cancelled 05/22/21 05/22/21 Range/Units 06:29 11:36 WBC (4.0-11.0) K/uL RBC (4.50-5.90) M/uL Hgb (13.0-17.0) g/dL Hct (38.0-50.0) % MCV (80.0-98.0) fL MCH (27.0-32.0) pg MCHC (31.0-37.0) g/dL RDW Std Deviation (28.0-62.0) fl RDW Coeff of Sakshi (11.0-15.0) % Plt Count (150-400) K/uL MPV (7.40-12.00) fL Neut % (Auto) (48.0-80.0) % Lymph % (Auto) (16.0-40.0) % [place] % (Auto) (0.0-15.0) % Eos % (Auto) (0.0-7.0) % Baso % (Auto) (0.0-1.5) % Neut # (Auto) (1.4-5.7) K/uL Lymph # (Auto) (0.6-2.4) K/uL [place] # (Auto) (0.0-0.8) K/uL Eos # (Auto) (0.0-0.7) K/uL Baso # (Auto) (0.0-0.1) K/uL Nucleated RBC % /100WBC Nucleated RBCs # K/uL Sodium Potassium Chloride Carbon Dioxide BUN Creatinine Est Cr Clr Drug Dosing Estimated GFR (MDRD) Glucose POC Glucose 147 H 190 H (70-99) mg/dL Calcium Total Bilirubin AST ALT Alkaline Phosphatase Total Protein Albumin Globulin Albumin/Globulin Ratio Result Diagrams: 05/22/21 05:47 05/21/21 02:25 Eusebio Results Last 24 hrs: Microbiology 05/20/21 16:05 Aerobic Blood Culture - Preliminary Blood - Venous - Lab Draw NO GROWTH AFTER 1 DAY Anaerobic Blood Culture - Preliminary NO GROWTH AFTER 1 DAY 05/20/21 15:55 Aerobic Blood Culture - Preliminary Blood - Venous NO GROWTH AFTER 1 DAY Anaerobic Blood Culture - Final Sepsis Event Note - Focused Exam Vital Signs: Vital Signs Temp Pulse Pulse Resp BP BP Pulse Ox 05/22/21 12:03 36.4 C 18 147/77 H 95 05/22/21 08:53 65 137/82 05/22/21 07:41 36.1 C 65 16 137/82 97 05/22/21 05:55 37.2 C 60 18 142/80 H 96 - My Orders Last 24 Hours: My Active Orders 05/21/21 21:42 Diltiazem 20 mg IVPUSH Q4H PRN 05/21/21 21:44 Codeine/guaiFENesin [Robitussin AC] 10 ml PO Q6H PRN - Plan Plan:: I have seen and evaluated the patient and agree with the residents note unless specified in my note
[2021-05-21] MEDS ORDERED: Azithromycin 500 MG Vial IV SCH (16:00)
[2021-05-21] MEDS: Azithromycin 500 MG in Sodium Chloride 0.9% 250 ML IV SCH (16:17)
[2021-05-21] MEDS: traZODone 50 MG Tab PO SCH (20:50)
[2021-05-21] MEDS: Melatonin 3 MG Tab PO SCH (20:50)
[2021-05-21] MEDS: Codeine/guaiFENesin 10-100 MG/5 ML Syrup 5 ML Cup PO PRN (21:55)
[2021-05-21] MEDS: Diltiazem 25 MG/5 ML SDV IVPUSH PRN ×2 (21:56→22:26)
[2021-05-21] MEDS ORDERED: Metoprolol Tartrate 50 MG Tab PO ONE (23:10)
[2021-05-22 06:20] LABS: POTASSIUM,K 4.4 mmol/L (3.5-5.1)
[2021-05-22] MEDS: Codeine/guaiFENesin 10-100 MG/5 ML Syrup 5 ML Cup PO PRN ×2 (07:34→14:56)
[2021-05-22] MEDS: Lactated Ringers 1,000 ML IV SCH (07:35)
[2021-05-22] MEDS: Insulin Aspart 100 Units/ML 3 ML Pen SUBCUT SCH ×3 (08:02→17:07)
[2021-05-22] MEDS: Acidophilus with Citrus Pectin Tab PO SCH (08:51)
[2021-05-22] MEDS: atorvaSTATin 20 MG Tab PO SCH (08:52)
[2021-05-22] MEDS: Metoprolol Succinate 50 MG Tab.ER PO SCH (08:53)
[2021-05-22] MEDS: Citalopram 20 MG Tab PO SCH (08:54)
[2021-05-22] MEDS: Morphine 2 MG/ML SYRINGE IVPUSH PRN ×3 (08:55→17:27)
[2021-05-22] MEDS: Heparin Sodium 5,000 Units/ML Vial SUBCUT SCH ×2 (08:56→21:39)
--- NOTE | 2021-05-22 13:37 | PCM.PN ---
<Diane Trotter - Last Filed: 05/22/21 13:32> - General Info Date of Service: 05/22/21 Subjective Update: The patient is a 66-year-old male on day 3 of admission with a significant past medical history of hypertension, diabetes mellitus, and right nephrectomy who was admitted for community-acquired pneumonia and kidney disease. The patient also is complaining of thoracic back pain. While in hospital the patient has had episodes of atrial fibrillation that with treatment with diltiazem and metoprolol have converted to sinus rhythm. Upon interview he says that he has less cough than previous and that he is less short of breath. He has no other complaints at this time. - Review of Systems General: Denies: Fever, Weakness, Fatigue, Chills HEENT: Denies: Headaches, Sore Throat Pulmonary: Reports: Shortness of Breath, Cough. Denies: Sputum, Hemoptysis Cardiovascular: Denies: Chest Pain, Palpitations, Dyspnea on Exertion Gastrointestinal: Denies: Abdominal Pain, Difficulty Swallowing Musculoskeletal: Reports: Back Pain - Patient Data Vitals - Most Recent: Last Vital Signs Temp 97.6 F 05/22/21 12:03 Pulse 65 05/22/21 08:53 Resp 16 05/22/21 07:41 BP 147/77 H 05/22/21 12:03 Pulse Ox 95 05/22/21 12:03 Weight - Most Recent: 104.236 kg I&O - Last 24 Hours: Intake & Output 05/21/21 05/22/21 05/22/21 22:59 06:59 14:59 Intake Total 1500 4473 Output Total 1400 2900 Balance 100 1573 Lab Results Last 24 Hours: Laboratory Results - last 24 hr 05/21/21 05/22/21 05/22/21 Range/Units 17:26 05:47 05:47 WBC 19.10 H (4.0-11.0) K/uL RBC 3.65 L (4.50-5.90) M/uL Hgb 11.2 L (13.0-17.0) g/dL Hct 32.5 L (38.0-50.0) % MCV 89.0 (80.0-98.0) fL MCH 30.7 (27.0-32.0) pg MCHC 34.5 (31.0-37.0) g/dL RDW Std Deviation 44.3 (28.0-62.0) fl RDW Coeff of Sakshi 14 (11.0-15.0) % Plt Count 269 (150-400) K/uL MPV 9.80 (7.40-12.00) fL Neut % (Auto) 82.7 H (48.0-80.0) % Lymph % (Auto) 9.2 L (16.0-40.0) % Marion % (Auto) 7.1 (0.0-15.0) % Eos % (Auto) 0.8 (0.0-7.0) % Baso % (Auto) 0.2 (0.0-1.5) % Neut # (Auto) 15.8 H (1.4-5.7) K/uL Lymph # (Auto) 1.8 (0.6-2.4) K/uL Marion # (Auto) 1.4 H (0.0-0.8) K/uL Eos # (Auto) 0.2 (0.0-0.7) K/uL Baso # (Auto) 0.0 (0.0-0.1) K/uL Nucleated RBC % 0.0 /100WBC Nucleated RBCs # 0 K/uL Sodium 137 (136-148) mmol/L Potassium 4.4 (3.5-5.1) mmol/L Chloride 103 (98-107) mmol/L Carbon Dioxide 22.0 (21.0-32.0) mmol/L BUN 23 H (7.0-18.0) mg/dL Creatinine 2.0 H (0.8-1.3) mg/dL Est Cr Clr Drug Dosing 38.02 mL/min Estimated GFR (MDRD) 33.7 ml/min Glucose 145 H (74-106) mg/dL POC Glucose 174 H (70-99) mg/dL Calcium 9.1 (8.5-10.1) mg/dL Total Bilirubin 0.6 (0.2-1.0) mg/dL AST 17 (15-37) IU/L ALT 20 (14-63) IU/L Alkaline Phosphatase 60 (46-116) U/L Total Protein 6.9 (6.4-8.2) g/dL Albumin 2.9 L (3.4-5.0) g/dL Globulin 4.0 (2.6-4.0) g/dL Albumin/Globulin Ratio 0.7 L (0.9-1.6) 05/22/21 05/22/21 Range/Units 06:29 11:36 WBC (4.0-11.0) K/uL RBC (4.50-5.90) M/uL Hgb (13.0-17.0) g/dL Hct (38.0-50.0) % MCV (80.0-98.0) fL MCH (27.0-32.0) pg MCHC (31.0-37.0) g/dL RDW Std Deviation (28.0-62.0) fl RDW Coeff of Sakshi (11.0-15.0) % Plt Count (150-400) K/uL MPV (7.40-12.00) fL Neut % (Auto) (48.0-80.0) % Lymph % (Auto) (16.0-40.0) % Marion % (Auto) (0.0-15.0) % Eos % (Auto) (0.0-7.0) % Baso % (Auto) (0.0-1.5) % Neut # (Auto) (1.4-5.7) K/uL Lymph # (Auto) (0.6-2.4) K/uL Marion # (Auto) (0.0-0.8) K/uL Eos # (Auto) (0.0-0.7) K/uL Baso # (Auto) (0.0-0.1) K/uL Nucleated RBC % /100WBC Nucleated RBCs # K/uL Sodium (136-148) mmol/L Potassium (3.5-5.1) mmol/L Chloride (98-107) mmol/L Carbon Dioxide (21.0-32.0) mmol/L BUN (7.0-18.0) mg/dL Creatinine (0.8-1.3) mg/dL Est Cr Clr Drug Dosing mL/min Estimated GFR (MDRD) ml/min Glucose (74-106) mg/dL POC Glucose 147 H 190 H (70-99) mg/dL Calcium (8.5-10.1) mg/dL Total Bilirubin (0.2-1.0) mg/dL AST (15-37) IU/L ALT (14-63) IU/L Alkaline Phosphatase (46-116) U/L Total Protein (6.4-8.2) g/dL Albumin (3.4-5.0) g/dL Globulin (2.6-4.0) g/dL Albumin/Globulin Ratio (0.9-1.6) Eusebio Results Last 24 Hours: Microbiology 05/20/21 16:05 Aerobic Blood Culture - Preliminary Blood - Venous - Lab Draw NO GROWTH AFTER 1 DAY Anaerobic Blood Culture - Preliminary NO GROWTH AFTER 1 DAY 05/20/21 15:55 Aerobic Blood Culture - Preliminary Blood - Venous NO GROWTH AFTER 1 DAY Anaerobic Blood Culture - Final Med Orders - Current: Current Medications Acetaminophen (Acetaminophen 325 Mg Tab) 325 mg PO Q6H PRN PRN Reason: Pain Last Admin: 05/20/21 17:30 Dose: 325 mg Documented by: Acidophilus/Pectin (Acidophilus With [place] Pectin Tab) 1 tab PO DAILY [facility] Last Admin: 05/22/21 08:51 Dose: 1 tab Documented by: Atorvastatin Calcium (Atorvastatin 20 Mg Tab) 20 mg PO DAILY [facility] Last Admin: 05/22/21 08:52 Dose: 20 mg Documented by: Citalopram Hydrobromide (Citalopram 20 Mg Tab) 20 mg PO DAILY [facility] Last Admin: 05/22/21 08:54 Dose: 20 mg Documented by: Dextrose/Water (50% Dextrose In Water 50 Ml Syringe) 50 ml IVPUSH ASDIRECTED PRN PRN Reason: Hypoglycemia Diltiazem HCl (Diltiazem 25 Mg/5 Ml Sdv) 20 mg IVPUSH Q4H PRN PRN Reason: Tachycardia Last Admin: 05/21/21 22:26 Dose: 20 mg Documented by: Glucagon (Glucagon,Human Recombinant 1 Mg Vial) 1 mg IM ASDIRECTED PRN PRN Reason: Hypoglycemia Guaifenesin/Codeine Phosphate (Codeine/Guaifenesin 10-100 Mg/5 Ml Syrup 5 Ml Cup) 10 ml PO Q6H PRN PRN Reason: Cough Last Admin: 05/22/21 07:34 Dose: 10 ml Documented by: Heparin Sodium (Porcine) (Heparin Sodium 5,000 Units/Ml Vial) 5,000 units SUBCUT Q12H [facility] Last Admin: 05/22/21 08:56 Dose: 5,000 units Documented by: Sodium Chloride (Normal Saline) 1,000 mls @ 1,000 mls/hr IV ASDIRECTED [facility] Last Infusion: 05/20/21 14:40 Dose: Infused Documented by: Ceftriaxone Sodium/Dextrose (Rocephin In Dextrose,Iso-Osm 1 Gm/50 Ml) 50 mls @ 100 mls/hr IV Q24H [facility] Last Admin: 05/21/21 15:24 Dose: 100 mls/hr Documented by: Azithromycin 500 mg/ Sodium (Chloride) 250 mls @ 250 mls/hr IV Q24H [facility] Last Admin: 05/21/21 16:17 Dose: 250 mls/hr Documented by: Insulin Aspart (Insulin Aspart 100 Units/Ml 3 Ml Pen) 0 unit SUBCUT TIDAC [facility]; Protocol Last Admin: 05/22/21 11:56 Dose: 1 unit Documented by: Ipratropium Douglas (Ipratropium 0.02% 0.5 Mg/2.5 Ml Neb Soln) 0.5 mg NEB Q6HRRT PRN PRN Reason: wheezing/dyspnea Melatonin (Melatonin 3 Mg Tab) 9 mg PO BEDTIME [facility] Last Admin: 05/21/21 20:50 Dose: 9 mg Documented by: Metoprolol Succinate (Metoprolol Succinate 50 Mg Tab.Er) 50 mg PO DAILY [facility] Last Admin: 05/22/21 08:53 Dose: 50 mg Documented by: Morphine Sulfate (Morphine 2 Mg/Ml Syringe) 1 mg IVPUSH Q4H PRN PRN Reason: Pain Last Admin: 05/22/21 13:17 Dose: 1 mg Documented by: Trazodone HCl (Trazodone 50 Mg Tab) 50 mg PO BEDTIME [facility] Last Admin: 05/21/21 20:50 Dose: 50 mg Documented by: Discontinued Medications Albuterol/Ipratropium (Albuterol/Ipratropium 3.0-0.5 Mg/3 Ml Neb Soln) 3 ml NEB Q4HRRT [facility] Last Admin: 05/21/21 13:00 Dose: 3 ml Documented by: Azithromycin (Azithromycin 500 Mg Vial) 500 mg IV Q24H [facility] Ceftriaxone Sodium (Ceftriaxone 1 Gm Vial) 1 gm IVPUSH ONETIME ONE Stop: 05/20/21 15:39 Last Admin: 05/20/21 16:05 Dose: 1 gm Documented by: Azithromycin 500 mg/ Sodium (Chloride) 250 mls @ 250 mls/hr IV ONETIME [facility] Last Admin: 05/20/21 16:06 Dose: 250 mls/hr Documented by: Sterile Water (Sterile Water For Injection) Confirm Administered Dose 20 mls @ as directed .ROUTE .STK-MED ONE Stop: 05/20/21 15:44 Last Admin: 05/20/21 15:56 Dose: Not Given Documented by: Sodium Chloride (Normal Saline) 1,000 mls @ 999 mls/hr IV .Bolus ONE Stop: 05/20/21 17:23 Last Admin: 05/20/21 17:07 Dose: 999 mls/hr Documented by: Ceftriaxone Sodium 1 gm/ (Sodium Chloride) 50 mls @ 100 mls/hr IV Q24H [facility] Sodium Chloride (Normal Saline) 1,000 mls @ 125 mls/hr IV ASDIRECTED [facility] Last Admin: 05/20/21 17:09 Dose: 125 mls/hr Documented by: Sodium Chloride (Normal Saline) 500 mls @ 999 mls/hr IV BOLUS ONE Stop: 05/20/21 22:43 Last Admin: 05/20/21 23:02 Dose: 999 mls/hr Documented by: Lactated Ringer's (Ringers, Lactated) 1,000 mls @ 125 mls/hr IV ASDIRECTED [facility] Last Admin: 05/22/21 07:35 Dose: 125 mls/hr Documented by: Metoprolol Tartrate (Metoprolol Tartrate 50 Mg Tab) 50 mg PO ONETIME ONE Stop: 05/21/21 23:11 Last Admin: 05/21/21 23:36 Dose: 50 mg Documented by: Pneumococcal Polyvalent Vaccine (Pneumococcal 23-Valent Conjugate Vaccine 0.5 Ml Syringe) 25 mcg IM .ONCE ONE Stop: 05/21/21 09:01 Sterile Water (Water For Injection, Sterile 20 Ml Sdv) 20 ml INJECT ONETIME ONE Stop: 05/20/21 15:45 Last Admin: 05/20/21 16:05 Dose: 20 ml Documented by: - Exam General: Alert, Oriented, Cooperative Neck: No: Lymphadenopathy Lungs: Wheezing Cardiovascular: Regular Rate, Regular Rhythm, No Murmurs GI/Abdominal Exam: Normal Bowel Sounds, Soft, Non-Tender Back Exam: Other (Pain on palpation, midline, T7 area) - Patient Data Lab Results Last 24 hrs: Laboratory Results - last 24 hr 05/21/21 05/22/21 05/22/21 Range/Units 17:26 05:47 05:47 WBC 19.10 H (4.0-11.0) K/uL RBC 3.65 L (4.50-5.90) M/uL Hgb 11.2 L (13.0-17.0) g/dL Hct 32.5 L (38.0-50.0) % MCV 89.0 (80.0-98.0) fL MCH 30.7 (27.0-32.0) pg MCHC 34.5 (31.0-37.0) g/dL RDW Std Deviation 44.3 (28.0-62.0) fl RDW Coeff of Sakshi 14 (11.0-15.0) % Plt Count 269 (150-400) K/uL MPV 9.80 (7.40-12.00) fL Neut % (Auto) 82.7 H (48.0-80.0) % Lymph % (Auto) 9.2 L (16.0-40.0) % Marion % (Auto) 7.1 (0.0-15.0) % Eos % (Auto) 0.8 (0.0-7.0) % Baso % (Auto) 0.2 (0.0-1.5) % Neut # (Auto) 15.8 H (1.4-5.7) K/uL Lymph # (Auto) 1.8 (0.6-2.4) K/uL Marion # (Auto) 1.4 H (0.0-0.8) K/uL Eos # (Auto) 0.2 (0.0-0.7) K/uL Baso # (Auto) 0.0 (0.0-0.1) K/uL Nucleated RBC % 0.0 /100WBC Nucleated RBCs # 0 K/uL Sodium 137 (136-148) mmol/L Potassium 4.4 (3.5-5.1) mmol/L Chloride 103 (98-107) mmol/L Carbon Dioxide 22.0 (21.0-32.0) mmol/L BUN 23 H (7.0-18.0) mg/dL Creatinine 2.0 H (0.8-1.3) mg/dL Est Cr Clr Drug Dosing 38.02 mL/min Estimated GFR (MDRD) 33.7 ml/min Glucose 145 H (74-106) mg/dL POC Glucose 174 H (70-99) mg/dL Calcium 9.1 (8.5-10.1) mg/dL Total Bilirubin 0.6 (0.2-1.0) mg/dL AST 17 (15-37) IU/L ALT 20 (14-63) IU/L Alkaline Phosphatase 60 (46-116) U/L Total Protein 6.9 (6.4-8.2) g/dL Albumin 2.9 L (3.4-5.0) g/dL Globulin 4.0 (2.6-4.0) g/dL Albumin/Globulin Ratio 0.7 L (0.9-1.6) 05/22/21 05/22/21 Range/Units 06:29 11:36 WBC (4.0-11.0) K/uL RBC (4.50-5.90) M/uL Hgb (13.0-17.0) g/dL Hct (38.0-50.0) % MCV (80.0-98.0) fL MCH (27.0-32.0) pg MCHC (31.0-37.0) g/dL RDW Std Deviation (28.0-62.0) fl RDW Coeff of Sakshi (11.0-15.0) % Plt Count (150-400) K/uL MPV (7.40-12.00) fL Neut % (Auto) (48.0-80.0) % Lymph % (Auto) (16.0-40.0) % Marion % (Auto) (0.0-15.0) % Eos % (Auto) (0.0-7.0) % Baso % (Auto) (0.0-1.5) % Neut # (Auto) (1.4-5.7) K/uL Lymph # (Auto) (0.6-2.4) K/uL Marion # (Auto) (0.0-0.8) K/uL Eos # (Auto) (0.0-0.7) K/uL Baso # (Auto) (0.0-0.1) K/uL Nucleated RBC % /100WBC Nucleated RBCs # K/uL Sodium (136-148) mmol/L Potassium (3.5-5.1) mmol/L Chloride (98-107) mmol/L Carbon Dioxide (21.0-32.0) mmol/L BUN (7.0-18.0) mg/dL Creatinine (0.8-1.3) mg/dL Est Cr Clr Drug Dosing mL/min Estimated GFR (MDRD) ml/min Glucose (74-106) mg/dL POC Glucose 147 H 190 H (70-99) mg/dL Calcium (8.5-10.1) mg/dL Total Bilirubin (0.2-1.0) mg/dL AST (15-37) IU/L ALT (14-63) IU/L Alkaline Phosphatase (46-116) U/L Total Protein (6.4-8.2) g/dL Albumin (3.4-5.0) g/dL Globulin (2.6-4.0) g/dL Albumin/Globulin Ratio (0.9-1.6) Result Diagrams: 05/22/21 05:47 05/22/21 05:47 Eusebio Results Last 24 hrs: Microbiology 05/20/21 16:05 Aerobic Blood Culture - Preliminary Blood - Venous - Lab Draw NO GROWTH AFTER 1 DAY Anaerobic Blood Culture - Preliminary NO GROWTH AFTER 1 DAY 05/20/21 15:55 Aerobic Blood Culture - Preliminary Blood - Venous NO GROWTH AFTER 1 DAY Anaerobic Blood Culture - Final Sepsis Event Note - Evaluation Sepsis Screening Result: No Definite Risk - Focused Exam Vital Signs: Vital Signs Temp Pulse Pulse Resp BP BP Pulse Ox 05/22/21 12:03 97.6 F 147/77 H 95 05/22/21 08:53 65 137/82 05/22/21 07:41 97 F 65 16 137/82 97 05/22/21 05:55 98.9 F 60 18 142/80 H 96 - Problem List & Annotations (1) Back pain of thoracolumbar region SNOMED Code(s): 808767471 Code(s): M54.5 - LOW BACK PAIN; M54.6 - PAIN IN THORACIC SPINE Status: Acute Current Visit: Yes (2) Kidney disease SNOMED Code(s): 54411816 Code(s): N28.9 - DISORDER OF KIDNEY AND URETER, UNSPECIFIED Status: Acute Current Visit: Yes (3) Pneumonia SNOMED Code(s): 959152734 Code(s): J18.9 - PNEUMONIA, UNSPECIFIED ORGANISM Status: Acute Current Visit: Yes (4) Paroxysmal A-fib SNOMED Code(s): 573871092 Code(s): I48.0 - PAROXYSMAL ATRIAL FIBRILLATION Status: Acute Current Visit: Yes - Problem List Review Problem List Initiated/Reviewed/Updated: Yes - My Orders Last 24 Hours: My Active Orders 05/21/21 15:02 Morphine 1 mg IVPUSH Q4H PRN 05/23/21 05:11 CBC WITH AUTO DIFF [HEME] AM CMP [COMPREHENSIVE METABOLIC PN,CMP] [CHEM] AM - Plan Plan:: 1. Community-acquired pneumonia -Continue the patient on ceftriaxone 1 g IV every 24 hours, and continue azithromycin 500 mg IV every 24 hours -Continue to monitor patient's white blood cell status through daily CBC -Continue the patient on DuoNeb therapy, every 4 hours 2. Kidney disease -The patient has an elevated BUN and creatinine level which has decreased from previous laboratory exams. He is doing better but we must continue to monitor these levels. The patient is on fluids, 1000 mL at 125 mL/h we will continue to monitor renal function through daily CMP's 3. Thoracic level back pain -The patient is on IV morphine 1 mg every 4 hours 4. Paroxysmal atrial fibrillation -The patient had an episode of atrial fibrillation last night and was given diltiazem 20 mg twice daily as well as 50 mg of metoprolol, he is currently on telemetry, and is back in sinus rhythm. We will continue to monitor his heart's electrical status. <Roseline Weber - Last Filed: 05/22/21 15:15> - Patient Data Vitals - Most Recent: Last Vital Signs Temp 36.4 C 05/22/21 12:03 Pulse 65 05/22/21 08:53 Resp 18 05/22/21 12:03 BP 147/77 H 05/22/21 12:03 Pulse Ox 95 05/22/21 12:03 I&O - Last 24 Hours: Intake & Output 05/22/21 05/22/21 05/22/21 06:59 14:59 22:59 Intake Total 4473 Output Total 2900 1400 Balance 1573 -1400 Lab Results Last 24 Hours: Laboratory Results - last 24 hr 05/21/21 05/22/21 05/22/21 Range/Units 17:26 05:47 05:47 WBC 19.10 H (4.0-11.0) K/uL RBC 3.65 L (4.50-5.90) M/uL Hgb 11.2 L (13.0-17.0) g/dL Hct 32.5 L (38.0-50.0) % MCV 89.0 (80.0-98.0) fL MCH 30.7 (27.0-32.0) pg MCHC 34.5 (31.0-37.0) g/dL RDW Std Deviation 44.3 (28.0-62.0) fl RDW Coeff of Sakshi 14 (11.0-15.0) % Plt Count 269 (150-400) K/uL MPV 9.80 (7.40-12.00) fL Neut % (Auto) 82.7 H (48.0-80.0) % Lymph % (Auto) 9.2 L (16.0-40.0) % Marion % (Auto) 7.1 (0.0-15.0) % Eos % (Auto) 0.8 (0.0-7.0) % Baso % (Auto) 0.2 (0.0-1.5) % Neut # (Auto) 15.8 H (1.4-5.7) K/uL Lymph # (Auto) 1.8 (0.6-2.4) K/uL Marion # (Auto) 1.4 H (0.0-0.8) K/uL Eos # (Auto) 0.2 (0.0-0.7) K/uL Baso # (Auto) 0.0 (0.0-0.1) K/uL Nucleated RBC % 0.0 /100WBC Nucleated RBCs # 0 K/uL Sodium Cancelled Potassium Cancelled Chloride Cancelled Carbon Dioxide Cancelled BUN Cancelled Creatinine Cancelled Est Cr Clr Drug Dosing Cancelled Estimated GFR (MDRD) Cancelled Glucose Cancelled POC Glucose 174 H (70-99) mg/dL Calcium Cancelled Total Bilirubin Cancelled AST Cancelled ALT Cancelled Alkaline Phosphatase Cancelled Total Protein Cancelled Albumin Cancelled Globulin Cancelled Albumin/Globulin Ratio Cancelled 05/22/21 05/22/21 Range/Units 06:29 11:36 WBC (4.0-11.0) K/uL RBC (4.50-5.90) M/uL Hgb (13.0-17.0) g/dL Hct (38.0-50.0) % MCV (80.0-98.0) fL MCH (27.0-32.0) pg MCHC (31.0-37.0) g/dL RDW Std Deviation (28.0-62.0) fl RDW Coeff of Sakshi (11.0-15.0) % Plt Count (150-400) K/uL MPV (7.40-12.00) fL Neut % (Auto) (48.0-80.0) % Lymph % (Auto) (16.0-40.0) % Marion % (Auto) (0.0-15.0) % Eos % (Auto) (0.0-7.0) % Baso % (Auto) (0.0-1.5) % Neut # (Auto) (1.4-5.7) K/uL Lymph # (Auto) (0.6-2.4) K/uL Marion # (Auto) (0.0-0.8) K/uL Eos # (Auto) (0.0-0.7) K/uL Baso # (Auto) (0.0-0.1) K/uL Nucleated RBC % /100WBC Nucleated RBCs # K/uL Sodium Potassium Chloride Carbon Dioxide BUN Creatinine Est Cr Clr Drug Dosing Estimated GFR (MDRD) Glucose POC Glucose 147 H 190 H (70-99) mg/dL Calcium Total Bilirubin AST ALT Alkaline Phosphatase Total Protein Albumin Globulin Albumin/Globulin Ratio Euseboi Results Last 24 Hours: Microbiology 05/20/21 16:05 Aerobic Blood Culture - Preliminary Blood - Venous - Lab Draw NO GROWTH AFTER 1 DAY Anaerobic Blood Culture - Preliminary NO GROWTH AFTER 1 DAY 05/20/21 15:55 Aerobic Blood Culture - Preliminary Blood - Venous NO GROWTH AFTER 1 DAY Anaerobic Blood Culture - Final Med Orders - Current: Current Medications Acetaminophen (Acetaminophen 325 Mg Tab) 325 mg PO Q6H PRN PRN Reason: Pain Last Admin: 05/20/21 17:30 Dose: 325 mg Documented by: Acidophilus/Pectin (Acidophilus With [place] Pectin Tab) 1 tab PO DAILY [facility] Last Admin: 05/22/21 08:51 Dose: 1 tab Documented by: Atorvastatin Calcium (Atorvastatin 20 Mg Tab) 20 mg PO DAILY [facility] Last Admin: 05/22/21 08:52 Dose: 20 mg Documented by: Citalopram Hydrobromide (Citalopram 20 Mg Tab) 20 mg PO DAILY [facility] Last Admin: 05/22/21 08:54 Dose: 20 mg Documented by: Dextrose/Water (50% Dextrose In Water 50 Ml Syringe) 50 ml IVPUSH ASDIRECTED PRN PRN Reason: Hypoglycemia Diltiazem HCl (Diltiazem 25 Mg/5 Ml Sdv) 20 mg IVPUSH Q4H PRN PRN Reason: Tachycardia Last Admin: 05/21/21 22:26 Dose: 20 mg Documented by: Glucagon (Glucagon,Human Recombinant 1 Mg Vial) 1 mg IM ASDIRECTED PRN PRN Reason: Hypoglycemia Guaifenesin/Codeine Phosphate (Codeine/Guaifenesin 10-100 Mg/5 Ml Syrup 5 Ml Cup) 10 ml PO Q6H PRN PRN Reason: Cough Last Admin: 05/22/21 14:56 Dose: 10 ml Documented by: Heparin Sodium (Porcine) (Heparin Sodium 5,000 Units/Ml Vial) 5,000 units SUBCUT Q12H [facility] Last Admin: 05/22/21 08:56 Dose: 5,000 units Documented by: Sodium Chloride (Normal Saline) 1,000 mls @ 1,000 mls/hr IV ASDIRECTED [facility] Last Infusion: 05/20/21 14:40 Dose: Infused Documented by: Ceftriaxone Sodium/Dextrose (Rocephin In Dextrose,Iso-Osm 1 Gm/50 Ml) 50 mls @ 100 mls/hr IV Q24H [facility] Last Admin: 05/22/21 14:57 Dose: 100 mls/hr Documented by: Azithromycin 500 mg/ Sodium (Chloride) 250 mls @ 250 mls/hr IV Q24H [facility] Last Admin: 05/21/21 16:17 Dose: 250 mls/hr Documented by: Insulin Aspart (Insulin Aspart 100 Units/Ml 3 Ml Pen) 0 unit SUBCUT TIDAC [facility]; Protocol Last Admin: 05/22/21 11:56 Dose: 1 unit Documented by: Ipratropium Douglas (Ipratropium 0.02% 0.5 Mg/2.5 Ml Neb Soln) 0.5 mg NEB Q6HRRT PRN PRN Reason: wheezing/dyspnea Melatonin (Melatonin 3 Mg Tab) 9 mg PO BEDTIME [facility] Last Admin: 05/21/21 20:50 Dose: 9 mg Documented by: Metoprolol Succinate (Metoprolol Succinate 50 Mg Tab.Er) 50 mg PO DAILY [facility] Last Admin: 05/22/21 08:53 Dose: 50 mg Documented by: Morphine Sulfate (Morphine 2 Mg/Ml Syringe) 1 mg IVPUSH Q4H PRN PRN Reason: Pain Last Admin: 05/22/21 13:17 Dose: 1 mg Documented by: Trazodone HCl (Trazodone 50 Mg Tab) 50 mg PO BEDTIME [facility] Last Admin: 05/21/21 20:50 Dose: 50 mg Documented by: Discontinued Medications Albuterol/Ipratropium (Albuterol/Ipratropium 3.0-0.5 Mg/3 Ml Neb Soln) 3 ml NEB Q4HRRT [facility] Last Admin: 05/21/21 13:00 Dose: 3 ml Documented by: Azithromycin (Azithromycin 500 Mg Vial) 500 mg IV Q24H [facility] Ceftriaxone Sodium (Ceftriaxone 1 Gm Vial) 1 gm IVPUSH ONETIME ONE Stop: 05/20/21 15:39 Last Admin: 05/20/21 16:05 Dose: 1 gm Documented by: Azithromycin 500 mg/ Sodium (Chloride) 250 mls @ 250 mls/hr IV ONETIME [facility] Last Admin: 05/20/21 16:06 Dose: 250 mls/hr Documented by: Sterile Water (Sterile Water For Injection) Confirm Administered Dose 20 mls @ as directed .ROUTE .STK-MED ONE Stop: 05/20/21 15:44 Last Admin: 05/20/21 15:56 Dose: Not Given Documented by: Sodium Chloride (Normal Saline) 1,000 mls @ 999 mls/hr IV .Bolus ONE Stop: 05/20/21 17:23 Last Admin: 05/20/21 17:07 Dose: 999 mls/hr Documented by: Ceftriaxone Sodium 1 gm/ (Sodium Chloride) 50 mls @ 100 mls/hr IV Q24H [facility]A Sodium Chloride (Normal Saline) 1,000 mls @ 125 mls/hr IV ASDIRECTED [facility] Last Admin: 05/20/21 17:09 Dose: 125 mls/hr Documented by: Sodium Chloride (Normal Saline) 500 mls @ 999 mls/hr IV BOLUS ONE Stop: 05/20/21 22:43 Last Admin: 05/20/21 23:02 Dose: 999 mls/hr Documented by: Lactated Ringer's (Ringers, Lactated) 1,000 mls @ 125 mls/hr IV ASDIRECTED [facility] Last Admin: 05/22/21 07:35 Dose: 125 mls/hr Documented by: Metoprolol Tartrate (Metoprolol Tartrate 50 Mg Tab) 50 mg PO ONETIME ONE Stop: 05/21/21 23:11 Last Admin: 05/21/21 23:36 Dose: 50 mg Documented by: Pneumococcal Polyvalent Vaccine (Pneumococcal 23-Valent Conjugate Vaccine 0.5 Ml Syringe) 25 mcg IM .ONCE ONE Stop: 05/21/21 09:01 Sterile Water (Water For Injection, Sterile 20 Ml Sdv) 20 ml INJECT ONETIME ONE Stop: 05/20/21 15:45 Last Admin: 05/20/21 16:05 Dose: 20 ml Documented by: - Patient Data Lab Results Last 24 hrs: Laboratory Results - last 24 hr 05/21/21 05/22/21 05/22/21 Range/Units 17:26 05:47 05:47 WBC 19.10 H (4.0-11.0) K/uL RBC 3.65 L (4.50-5.90) M/uL Hgb 11.2 L (13.0-17.0) g/dL Hct 32.5 L (38.0-50.0) % MCV 89.0 (80.0-98.0) fL MCH 30.7 (27.0-32.0) pg MCHC 34.5 (31.0-37.0) g/dL RDW Std Deviation 44.3 (28.0-62.0) fl RDW Coeff of Sakshi 14 (11.0-15.0) % Plt Count 269 (150-400) K/uL MPV 9.80 (7.40-12.00) fL Neut % (Auto) 82.7 H (48.0-80.0) % Lymph % (Auto) 9.2 L (16.0-40.0) % Marion % (Auto) 7.1 (0.0-15.0) % Eos % (Auto) 0.8 (0.0-7.0) % Baso % (Auto) 0.2 (0.0-1.5) % Neut # (Auto) 15.8 H (1.4-5.7) K/uL Lymph # (Auto) 1.8 (0.6-2.4) K/uL Marion # (Auto) 1.4 H (0.0-0.8) K/uL Eos # (Auto) 0.2 (0.0-0.7) K/uL Baso # (Auto) 0.0 (0.0-0.1) K/uL Nucleated RBC % 0.0 /100WBC Nucleated RBCs # 0 K/uL Sodium Cancelled Potassium Cancelled Chloride Cancelled Carbon Dioxide Cancelled BUN Cancelled Creatinine Cancelled Est Cr Clr Drug Dosing Cancelled Estimated GFR (MDRD) Cancelled Glucose Cancelled POC Glucose 174 H (70-99) mg/dL Calcium Cancelled Total Bilirubin Cancelled AST Cancelled ALT Cancelled Alkaline Phosphatase Cancelled Total Protein Cancelled Albumin Cancelled Globulin Cancelled Albumin/Globulin Ratio Cancelled 05/22/21 05/22/21 Range/Units 06:29 11:36 WBC (4.0-11.0) K/uL RBC (4.50-5.90) M/uL Hgb (13.0-17.0) g/dL Hct (38.0-50.0) % MCV (80.0-98.0) fL MCH (27.0-32.0) pg MCHC (31.0-37.0) g/dL RDW Std Deviation (28.0-62.0) fl RDW Coeff of Sakshi (11.0-15.0) % Plt Count (150-400) K/uL MPV (7.40-12.00) fL Neut % (Auto) (48.0-80.0) % Lymph % (Auto) (16.0-40.0) % Marion % (Auto) (0.0-15.0) % Eos % (Auto) (0.0-7.0) % Baso % (Auto) (0.0-1.5) % Neut # (Auto) (1.4-5.7) K/uL Lymph # (Auto) (0.6-2.4) K/uL Marion # (Auto) (0.0-0.8) K/uL Eos # (Auto) (0.0-0.7) K/uL Baso # (Auto) (0.0-0.1) K/uL Nucleated RBC % /100WBC Nucleated RBCs # K/uL Sodium Potassium Chloride Carbon Dioxide BUN Creatinine Est Cr Clr Drug Dosing Estimated GFR (MDRD) Glucose POC Glucose 147 H 190 H (70-99) mg/dL Calcium Total Bilirubin AST ALT Alkaline Phosphatase Total Protein Albumin Globulin Albumin/Globulin Ratio Result Diagrams: 05/22/21 05:47 05/21/21 02:25 Eusebio Results Last 24 hrs: Microbiology 05/20/21 16:05 Aerobic Blood Culture - Preliminary Blood - Venous - Lab Draw NO GROWTH AFTER 1 DAY Anaerobic Blood Culture - Preliminary NO GROWTH AFTER 1 DAY 05/20/21 15:55 Aerobic Blood Culture - Preliminary Blood - Venous NO GROWTH AFTER 1 DAY Anaerobic Blood Culture - Final Sepsis Event Note - Focused Exam Vital Signs: Vital Signs Temp Pulse Pulse Resp BP BP Pulse Ox 05/22/21 12:03 36.4 C 18 147/77 H 95 05/22/21 08:53 65 137/82 05/22/21 07:41 36.1 C 65 16 137/82 97 05/22/21 05:55 37.2 C 60 18 142/80 H 96 - My Orders Last 24 Hours: My Active Orders 05/21/21 21:42 Diltiazem 20 mg IVPUSH Q4H PRN 05/21/21 21:44 Codeine/guaiFENesin [Robitussin AC] 10 ml PO Q6H PRN - Plan Plan:: I have seen and evaluated the patient and agree with the residents note unless specified in my note
[2021-05-22] MEDS: Azithromycin 500 MG in Sodium Chloride 0.9% 250 ML IV SCH (15:53)
[2021-05-22] MEDS: Acetaminophen 325 MG Tab PO PRN (19:48)
[2021-05-22] MEDS: traZODone 50 MG Tab PO SCH (20:30)
[2021-05-22] MEDS: Melatonin 3 MG Tab PO SCH (20:30)
[2021-05-22] MEDS: Apixaban 5 MG Tab PO SCH (20:30)
[2021-05-22] MEDS: Diltiazem 25 MG/5 ML SDV IVPUSH PRN (20:32)
[2021-05-22] MEDS ORDERED: Metoprolol Tartrate 50 MG Tab PO ONE (21:36)
[2021-05-23] MEDS: Codeine/guaiFENesin 10-100 MG/5 ML Syrup 5 ML Cup PO PRN (06:39)
[2021-05-23 06:44] LABS: CARBON DIOXIDE,CO2 20.7 mmol/L (21.0-32.0); POTASSIUM,K 4.2 mmol/L (3.5-5.1)
[2021-05-23] MEDS: Diltiazem 25 MG/5 ML SDV IVPUSH PRN (06:49)
[2021-05-23] MEDS: Insulin Aspart 100 Units/ML 3 ML Pen SUBCUT SCH ×2 (07:37→12:15)
[2021-05-23] MEDS: Acidophilus with Citrus Pectin Tab PO SCH (08:42)
[2021-05-23] MEDS: Apixaban 5 MG Tab PO SCH (08:42)
[2021-05-23] MEDS: Citalopram 20 MG Tab PO SCH (08:42)
[2021-05-23] MEDS: atorvaSTATin 20 MG Tab PO SCH (08:42)
[2021-05-23] MEDS ORDERED: Metoprolol Succinate 100 MG Tab.ER PO SCH (09:00)
[2021-05-23] MEDS: Morphine 2 MG/ML SYRINGE IVPUSH PRN (10:23)
[2021-05-23] MEDS ORDERED: Pneumococcal Polyvalent-23 Vaccine 0.5 ML SDV IM ONE (11:00)
--- NOTE | 2021-05-23 15:15 | PCM.DCSUM1 ---
<Diane Trotter - Last Filed: 05/23/21 15:06> Discharge Summary - Hospital Course Free Text/Narrative:: The patient is a 66-year-old male with a significant medical history of hypertension, diabetes, and a right nephrectomy who was admitted for community-acquired pneumonia. On hospital admission he was also found to have kidney disease with increased creatinine and BUN, as well as atrial fibrillation on telemetry on multiple occasions which would convert back to sinus rhythm. For his community-acquired pneumonia he was placed on 1 g of ceftriaxone IV every 24 hours and 500 mg of azithromycin IV every 24 hours. His white blood cell count was initially elevated, was in the high 20s and then dropped to 19.10 yesterday, and was 13.01 today. Based on this improvement, the patient's IV antibiotic regimen could now progress to oral treatment. He will be discharged on levofloxacin 750 mg per oral route taken once daily, and will be provided 7 pills. In regards to his kidney disease, his creatinine was well above his baseline but with intravenous fluids has decreased to 1.9. For his atrial fibrillation, the patient has received multiple prescriptions including diltiazem 125 mg per oral route daily, Eliquis 5 mg p.o. twice a day, and metoprolol succinate 100 mg p.o. taken once daily. The patient is originally from [place] and will be returning this Friday; he will see his PCP in [place] in 1 to 2 weeks. Once at his PCP he will request a cardiology follow-up in [place] to his atrial fibrillation, receiving an echocardiogram, and further cardiac care. For his other significant medical history including back pain and hypertension, the patient will have his medication and management options reviewed by his PCP in [place]. - Discharge Data Discharge Date: 05/23/21 Discharge Disposition: Home, Self-Care 01 Condition: Stable - Referral to Home Health Primary Care Physician: PCP Not In Area - Discharge Diagnosis/Problem(s) (1) Back pain of thoracolumbar region SNOMED Code(s): 098301225 ICD Code: M54.5 - LOW BACK PAIN; M54.6 - PAIN IN THORACIC SPINE Status: Acute (2) Kidney disease SNOMED Code(s): 97721461 ICD Code: N28.9 - DISORDER OF KIDNEY AND URETER, UNSPECIFIED Status: Acute (3) Pneumonia SNOMED Code(s): 098443098 ICD Code: J18.9 - PNEUMONIA, UNSPECIFIED ORGANISM Status: Acute (4) Paroxysmal A-fib SNOMED Code(s): 274478782 ICD Code: I48.0 - PAROXYSMAL ATRIAL FIBRILLATION Status: Acute - Patient Instructions Diet: Heart Healthy Diet Activity: As Tolerated Driving: May Drive Today Showering/Bathing: May Shower Notify Provider of: Fever, Increased Pain, Swelling and Redness, Drainage, Nausea and/or Vomiting - Discharge Plan *PRESCRIPTION DRUG MONITORING PROGRAM REVIEWED*: Not Applicable *COPY OF PRESCRIPTION DRUG MONITORING REPORT IN PATIENT SANJIV: Not Applicable Prescriptions/Med Rec: Diltiazem [Cardizem CD] 120 mg PO DAILY #30 cap.er Apixaban [Eliquis] 5 mg PO BID #60 tablet levoFLOXacin [Levaquin] 750 mg PO DAILY #7 tab Codeine/guaiFENesin [Robitussin AC] 10 ml PO Q6H PRN #118 ml PRN Reason: Cough Metoprolol Succinate [Toprol XL 100mg] 100 mg PO DAILY #30 tab.er Home Medications: Home Meds Cholecalciferol (Vitamin D3) [Vitamin D3] 1 dose PO DAILY 05/20/21 [History] Citalopram [Citalopram HBr] 20 mg PO DAILY 05/20/21 [History] Dulaglutide [Trulicity] 3 mg PO DAILY 05/20/21 [History] Lactobacillus Acidophilus [Acidophilus Probiotic] 1 dose PO DAILY 05/20/21 [History] Melatonin 10 mg PO BEDTIME 05/20/21 [History] Omeprazole Magnesium 20 mg PO DAILY 05/20/21 [History] atorvaSTATin [Lipitor] 20 mg PO DAILY 05/20/21 [History] glipiZIDE [Glucotrol XL] 10 mg PO DAILY 05/20/21 [History] lisinopriL [Lisinopril] 2.5 mg PO DAILY 05/20/21 [History] traZODone 50 mg PO BEDTIME 05/20/21 [History] Buprenorphine 1 patch TOP WEEKLY PRN 05/21/21 [History] Buprenorphine HCl 1 tab .ROUTE BID PRN 05/21/21 [History] Apixaban [Eliquis] 5 mg PO BID #60 tablet 05/23/21 [Rx] Diltiazem [Cardizem CD] 120 mg PO DAILY #30 cap.er 05/23/21 [Rx] Metoprolol Succinate [Toprol XL 100mg] 100 mg PO DAILY #30 tab.er 05/23/21 [Rx] levoFLOXacin [Levaquin] 750 mg PO DAILY #7 tab 05/23/21 [Rx] Codeine/guaiFENesin [Robitussin AC] 10 ml PO Q6H PRN #118 ml 05/24/21 [Rx] Oxygen Therapy Mode: Room Air Patient Handouts: Diltiazem Extended-Release Oral Capsules or Tablets, Metoprolol Extended-Release Tablets, Levofloxacin tablets, Apixaban oral tablets, Community-Acquired Pneumonia, Adult, [id number] - Discharge Summary/Plan Comment DC Time >30 min.: Yes Total # of Minutes for Discharge Time: 35 minutes - Review of Systems General: Denies: Fever, Weakness, Fatigue Pulmonary: Denies: Shortness of Breath, Cough Cardiovascular: Denies: Chest Pain, Palpitations, Dyspnea on Exertion Gastrointestinal: Denies: Abdominal Pain, Constipation, Diarrhea Genitourinary: Denies: Dysuria - Patient Data Vitals - Most Recent: Last Vital Signs Temp 96.7 F L 05/23/21 11:58 Pulse 73 05/23/21 11:58 Resp 22 H 05/23/21 11:58 BP 135/80 05/23/21 11:58 Pulse Ox 96 05/23/21 11:58 Weight - Most Recent: 104.236 kg I&O - Last 24 hours: Intake & Output 05/23/21 05/23/21 05/23/21 06:59 14:59 22:59 Intake Total 1150 Output Total 750 Balance 400 Lab Results - Last 24 hrs: Laboratory Results - last 24 hr 05/22/21 05/22/21 05/23/21 Range/Units 05:47 17:01 05:10 WBC 13.01 H (4.0-11.0) K/uL RBC 4.04 L (4.50-5.90) M/uL Hgb 12.5 L (13.0-17.0) g/dL Hct 35.8 L (38.0-50.0) % MCV 88.6 (80.0-98.0) fL MCH 30.9 (27.0-32.0) pg MCHC 34.9 (31.0-37.0) g/dL RDW Std Deviation 43.7 (28.0-62.0) fl RDW Coeff of Sakshi 13 (11.0-15.0) % Plt Count 309 (150-400) K/uL MPV 9.70 (7.40-12.00) fL Neut % (Auto) 73.7 (48.0-80.0) % Lymph % (Auto) 14.5 L (16.0-40.0) % Quay % (Auto) 8.0 (0.0-15.0) % Eos % (Auto) 3.6 (0.0-7.0) % Baso % (Auto) 0.2 (0.0-1.5) % Neut # (Auto) 9.6 H (1.4-5.7) K/uL Lymph # (Auto) 1.9 (0.6-2.4) K/uL [place]ay # (Auto) 1.0 H (0.0-0.8) K/uL Eos # (Auto) 0.5 (0.0-0.7) K/uL Baso # (Auto) 0.0 (0.0-0.1) K/uL Nucleated RBC % 0.0 /100WBC Nucleated RBCs # 0 K/uL Sodium 137 (136-148) mmol/L Potassium 4.4 (3.5-5.1) mmol/L Chloride 103 (98-107) mmol/L Carbon Dioxide 22.0 (21.0-32.0) mmol/L BUN 23 H (7.0-18.0) mg/dL Creatinine 2.0 H (0.8-1.3) mg/dL Est Cr Clr Drug Dosing 38.02 mL/min Estimated GFR (MDRD) 33.7 ml/min Glucose 145 H (74-106) mg/dL POC Glucose 163 H (70-99) mg/dL Calcium 9.1 (8.5-10.1) mg/dL Total Bilirubin 0.6 (0.2-1.0) mg/dL AST 17 (15-37) IU/L ALT 20 (14-63) IU/L Alkaline Phosphatase 60 (46-116) U/L Total Protein 6.9 (6.4-8.2) g/dL Albumin 2.9 L (3.4-5.0) g/dL Globulin 4.0 (2.6-4.0) g/dL Albumin/Globulin Ratio 0.7 L (0.9-1.6) 05/23/21 05/23/21 05/23/21 Range/Units 05:10 06:36 11:31 WBC (4.0-11.0) K/uL RBC (4.50-5.90) M/uL Hgb (13.0-17.0) g/dL Hct (38.0-50.0) % MCV (80.0-98.0) fL MCH (27.0-32.0) pg MCHC (31.0-37.0) g/dL RDW Std Deviation (28.0-62.0) fl RDW Coeff of Sakshi (11.0-15.0) % Plt Count (150-400) K/uL MPV (7.40-12.00) fL Neut % (Auto) (48.0-80.0) % Lymph % (Auto) (16.0-40.0) % Quay % (Auto) (0.0-15.0) % Eos % (Auto) (0.0-7.0) % Baso % (Auto) (0.0-1.5) % Neut # (Auto) (1.4-5.7) K/uL Lymph # (Auto) (0.6-2.4) K/uL Quay # (Auto) (0.0-0.8) K/uL Eos # (Auto) (0.0-0.7) K/uL Baso # (Auto) (0.0-0.1) K/uL Nucleated RBC % /100WBC Nucleated RBCs # K/uL Sodium 137 (136-148) mmol/L Potassium 4.2 (3.5-5.1) mmol/L Chloride 102 (98-107) mmol/L Carbon Dioxide 20.7 L (21.0-32.0) mmol/L BUN 20 H (7.0-18.0) mg/dL Creatinine 1.9 H (0.8-1.3) mg/dL Est Cr Clr Drug Dosing 40.02 mL/min Estimated GFR (MDRD) 35.8 ml/min Glucose 168 H (74-106) mg/dL POC Glucose 170 H 205 H (70-99) mg/dL Calcium 9.3 (8.5-10.1) mg/dL Total Bilirubin 0.5 (0.2-1.0) mg/dL AST 13 L (15-37) IU/L ALT 22 (14-63) IU/L Alkaline Phosphatase 72 (46-116) U/L Total Protein 7.3 (6.4-8.2) g/dL Albumin 3.0 L (3.4-5.0) g/dL Globulin 4.3 H (2.6-4.0) g/dL Albumin/Globulin Ratio 0.7 L (0.9-1.6) DANIEL Results - Last 24 hrs: Microbiology 05/20/21 16:05 Aerobic Blood Culture - Preliminary Blood - Venous - Lab Draw NO GROWTH AFTER 2 DAYS Anaerobic Blood Culture - Preliminary NO GROWTH AFTER 2 DAYS 05/20/21 15:55 Aerobic Blood Culture - Preliminary Blood - Venous NO GROWTH AFTER 2 DAYS Anaerobic Blood Culture - Final Med Orders - Current: Current Medications Acetaminophen (Acetaminophen 325 Mg Tab) 325 mg PO Q6H PRN PRN Reason: Pain Last Admin: 05/22/21 19:48 Dose: 325 mg Documented by: Acidophilus/Pectin (Acidophilus With [place] Pectin Tab) 1 tab PO DAILY [facility] Last Admin: 05/23/21 08:42 Dose: 1 tab Documented by: Apixaban (Apixaban 5 Mg Tab) 5 mg PO BID [facility] Last Admin: 05/23/21 08:42 Dose: 5 mg Documented by: Atorvastatin Calcium (Atorvastatin 20 Mg Tab) 20 mg PO DAILY [facility] Last Admin: 05/23/21 08:42 Dose: 20 mg Documented by: Citalopram Hydrobromide (Citalopram 20 Mg Tab) 20 mg PO DAILY [facility] Last Admin: 05/23/21 08:42 Dose: 20 mg Documented by: Dextrose/Water (50% Dextrose In Water 50 Ml Syringe) 50 ml IVPUSH ASDIRECTED PRN PRN Reason: Hypoglycemia Diltiazem HCl (Diltiazem 25 Mg/5 Ml Sdv) 20 mg IVPUSH Q4H PRN PRN Reason: Tachycardia Last Admin: 05/23/21 06:49 Dose: 20 mg Documented by: Glucagon (Glucagon,Human Recombinant 1 Mg Vial) 1 mg IM ASDIRECTED PRN PRN Reason: Hypoglycemia Guaifenesin/Codeine Phosphate (Codeine/Guaifenesin 10-100 Mg/5 Ml Syrup 5 Ml Cup) 10 ml PO Q6H PRN PRN Reason: Cough Last Admin: 05/23/21 06:39 Dose: 10 ml Documented by: Sodium Chloride (Normal Saline) 1,000 mls @ 1,000 mls/hr IV ASDIRECTED [facility] Last Infusion: 05/20/21 14:40 Dose: Infused Documented by: Ceftriaxone Sodium/Dextrose (Rocephin In Dextrose,Iso-Osm 1 Gm/50 Ml) 50 mls @ 100 mls/hr IV Q24H [facility] Last Admin: 05/22/21 14:57 Dose: 100 mls/hr Documented by: Azithromycin 500 mg/ Sodium (Chloride) 250 mls @ 250 mls/hr IV Q24H [facility] Last Admin: 05/22/21 15:53 Dose: 250 mls/hr Documented by: Insulin Aspart (Insulin Aspart 100 Units/Ml 3 Ml Pen) 0 unit SUBCUT TIDAC [facility]; Protocol Last Admin: 05/23/21 12:15 Dose: 2 unit Documented by: Ipratropium [place] (Ipratropium 0.02% 0.5 Mg/2.5 Ml Neb Soln) 0.5 mg NEB Q6HRRT PRN PRN Reason: wheezing/dyspnea Melatonin (Melatonin 3 Mg Tab) 9 mg PO BEDTIME [facility] Last Admin: 05/22/21 20:30 Dose: 9 mg Documented by: Metoprolol Succinate (Metoprolol Succinate 100 Mg Tab.Er) 100 mg PO DAILY [facility] Last Admin: 05/23/21 08:42 Dose: 100 mg Documented by: Morphine Sulfate (Morphine 2 Mg/Ml Syringe) 1 mg IVPUSH Q4H PRN PRN Reason: Pain Last Admin: 05/23/21 10:23 Dose: 1 mg Documented by: Trazodone HCl (Trazodone 50 Mg Tab) 50 mg PO BEDTIME [facility] Last Admin: 05/22/21 20:30 Dose: 50 mg Documented by: Discontinued Medications Albuterol/Ipratropium (Albuterol/Ipratropium 3.0-0.5 Mg/3 Ml Neb Soln) 3 ml NEB Q4HRRT [facility] Last Admin: 05/21/21 13:00 Dose: 3 ml Documented by: Azithromycin (Azithromycin 500 Mg Vial) 500 mg IV Q24H [facility] Ceftriaxone Sodium (Ceftriaxone 1 Gm Vial) 1 gm IVPUSH ONETIME ONE Stop: 05/20/21 15:39 Last Admin: 05/20/21 16:05 Dose: 1 gm Documented by: Heparin Sodium (Porcine) (Heparin Sodium 5,000 Units/Ml Vial) 5,000 units SUBCUT Q12H [facility] Last Admin: 05/22/21 21:39 Dose: Not Given Documented by: Azithromycin 500 mg/ Sodium (Chloride) 250 mls @ 250 mls/hr IV ONETIME [facility] Last Admin: 05/20/21 16:06 Dose: 250 mls/hr Documented by: Sterile Water (Sterile Water For Injection) Confirm Administered Dose 20 mls @ as directed .ROUTE .STK-MED ONE Stop: 05/20/21 15:44 Last Admin: 05/20/21 15:56 Dose: Not Given Documented by: Sodium Chloride (Normal Saline) 1,000 mls @ 999 mls/hr IV .Bolus ONE Stop: 05/20/21 17:23 Last Admin: 05/20/21 17:07 Dose: 999 mls/hr Documented by: Ceftriaxone Sodium 1 gm/ (Sodium Chloride) 50 mls @ 100 mls/hr IV Q24H [facility] Sodium Chloride (Normal Saline) 1,000 mls @ 125 mls/hr IV ASDIRECTED [facility] Last Admin: 05/20/21 17:09 Dose: 125 mls/hr Documented by: Sodium Chloride (Normal Saline) 500 mls @ 999 mls/hr IV BOLUS ONE Stop: 05/20/21 22:43 Last Admin: 05/20/21 23:02 Dose: 999 mls/hr Documented by: Lactated Ringer's (Ringers, Lactated) 1,000 mls @ 125 mls/hr IV ASDIRECTED [facility] Last Admin: 05/22/21 07:35 Dose: 125 mls/hr Documented by: Metoprolol Succinate (Metoprolol Succinate 50 Mg Tab.Er) 50 mg PO DAILY [facility] Last Admin: 05/22/21 08:53 Dose: 50 mg Documented by: Metoprolol Tartrate (Metoprolol Tartrate 50 Mg Tab) 50 mg PO ONETIME ONE Stop: 05/21/21 23:11 Last Admin: 05/21/21 23:36 Dose: 50 mg Documented by: Metoprolol Tartrate (Metoprolol Tartrate 50 Mg Tab) 50 mg PO ONETIME ONE Stop: 05/22/21 21:37 Last Admin: 05/22/21 21:48 Dose: 50 mg Documented by: Pneumococcal Polyvalent Vaccine (Pneumococcal Polyvalent-23 Vaccine 0.5 Ml Sdv) 0.5 ml IM .ONCE ONE Stop: 05/23/21 11:01 Last Admin: 05/23/21 11:12 Dose: 0.5 ml Documented by: Sterile Water (Water For Injection, Sterile 20 Ml Sdv) 20 ml INJECT ONETIME ONE Stop: 05/20/21 15:45 Last Admin: 05/20/21 16:05 Dose: 20 ml Documented by: - Exam General: Reports: Alert, Oriented, Cooperative, No Acute Distress Lungs: Reports: Clear to Auscultation, Normal Respiratory Effort Cardiovascular: Reports: Regular Rate, Regular Rhythm, No Murmurs GI/Abdominal Exam: Normal Bowel Sounds, Soft, Non-Tender, No Organomegaly <Roseline Weber - Last Filed: 05/25/21 12:14> Discharge Summary - Hospital Course Free Text/Narrative:: I have seen and evaluated the patient and agree with the residents note unless specified in my note - Referral to Home Health Primary Care Physician: PCP Not In Area - Patient Data Vitals - Most Recent: Last Vital Signs Temp 35.9 C L 05/23/21 11:58 Pulse 73 05/23/21 11:58 Resp 22 H 05/23/21 11:58 BP 135/80 05/23/21 11:58 Pulse Ox 96 05/23/21 11:58 DANIEL Results - Last 24 hrs: Microbiology 05/20/21 16:05 Aerobic Blood Culture - Preliminary Blood - Venous - Lab Draw NO GROWTH AFTER 4 DAYS Anaerobic Blood Culture - Preliminary NO GROWTH AFTER 4 DAYS 05/20/21 15:55 Aerobic Blood Culture - Preliminary Blood - Venous NO GROWTH AFTER 4 DAYS Anaerobic Blood Culture - Final Med Orders - Current: Current Medications Discontinued Medications Acetaminophen (Acetaminophen 325 Mg Tab) 325 mg PO Q6H PRN PRN Reason: Pain Last Admin: 05/22/21 19:48 Dose: 325 mg Documented by: Acidophilus/Pectin (Acidophilus With [place] Pectin Tab) 1 tab PO DAILY [facility] Last Admin: 05/23/21 08:42 Dose: 1 tab Documented by: Albuterol/Ipratropium (Albuterol/Ipratropium 3.0-0.5 Mg/3 Ml Neb Soln) 3 ml NEB Q4HRRT [facility] Last Admin: 05/21/21 13:00 Dose: 3 ml Documented by: Apixaban (Apixaban 5 Mg Tab) 5 mg PO BID [facility] Last Admin: 05/23/21 08:42 Dose: 5 mg Documented by: Atorvastatin Calcium (Atorvastatin 20 Mg Tab) 20 mg PO DAILY [facility] Last Admin: 05/23/21 08:42 Dose: 20 mg Documented by: Azithromycin (Azithromycin 500 Mg Vial) 500 mg IV Q24H [facility] Ceftriaxone Sodium (Ceftriaxone 1 Gm Vial) 1 gm IVPUSH ONETIME ONE Stop: 05/20/21 15:39 Last Admin: 05/20/21 16:05 Dose: 1 gm Documented by: Citalopram Hydrobromide (Citalopram 20 Mg Tab) 20 mg PO DAILY [facility] Last Admin: 05/23/21 08:42 Dose: 20 mg Documented by: Dextrose/Water (50% Dextrose In Water 50 Ml Syringe) 50 ml IVPUSH ASDIRECTED PRN PRN Reason: Hypoglycemia Diltiazem HCl (Diltiazem 25 Mg/5 Ml Sdv) 20 mg IVPUSH Q4H PRN PRN Reason: Tachycardia Last Admin: 05/23/21 06:49 Dose: 20 mg Documented by: Glucagon (Glucagon,Human Recombinant 1 Mg Vial) 1 mg IM ASDIRECTED PRN PRN Reason: Hypoglycemia Guaifenesin/Codeine Phosphate (Codeine/Guaifenesin 10-100 Mg/5 Ml Syrup 5 Ml Cup) 10 ml PO Q6H PRN PRN Reason: Cough Last Admin: 05/23/21 06:39 Dose: 10 ml Documented by: Heparin Sodium (Porcine) (Heparin Sodium 5,000 Units/Ml Vial) 5,000 units SUBCUT Q12H [facility] Last Admin: 05/22/21 21:39 Dose: Not Given Documented by: Sodium Chloride (Normal Saline) 1,000 mls @ 1,000 mls/hr IV ASDIRECTED [facility] Last Infusion: 05/20/21 14:40 Dose: Infused Documented by: Azithromycin 500 mg/ Sodium (Chloride) 250 mls @ 250 mls/hr IV ONETIME [facility] Last Admin: 05/20/21 16:06 Dose: 250 mls/hr Documented by: Sterile Water (Sterile Water For Injection) Confirm Administered Dose 20 mls @ as directed .ROUTE .STK-MED ONE Stop: 05/20/21 15:44 Last Admin: 05/20/21 15:56 Dose: Not Given Documented by: Sodium Chloride (Normal Saline) 1,000 mls @ 999 mls/hr IV .Bolus ONE Stop: 05/20/21 17:23 Last Admin: 05/20/21 17:07 Dose: 999 mls/hr Documented by: Ceftriaxone Sodium 1 gm/ (Sodium Chloride) 50 mls @ 100 mls/hr IV Q24H [facility] Sodium Chloride (Normal Saline) 1,000 mls @ 125 mls/hr IV ASDIRECTED [facility] Last Admin: 05/20/21 17:09 Dose: 125 mls/hr Documented by: Ceftriaxone Sodium/Dextrose (Rocephin In Dextrose,Iso-Osm 1 Gm/50 Ml) 50 mls @ 100 mls/hr IV Q24H [facility] Last Admin: 05/22/21 14:57 Dose: 100 mls/hr Documented by: Azithromycin 500 mg/ Sodium (Chloride) 250 mls @ 250 mls/hr IV Q24H [facility] Last Admin: 05/22/21 15:53 Dose: 250 mls/hr Documented by: Sodium Chloride (Normal Saline) 500 mls @ 999 mls/hr IV BOLUS ONE Stop: 05/20/21 22:43 Last Admin: 05/20/21 23:02 Dose: 999 mls/hr Documented by: Lactated Ringer's (Ringers, Lactated) 1,000 mls @ 125 mls/hr IV ASDIRECTED [facility] Last Admin: 05/22/21 07:35 Dose: 125 mls/hr Documented by: Insulin Aspart (Insulin Aspart 100 Units/Ml 3 Ml Pen) 0 unit SUBCUT TIDAC [facility]; Protocol Last Admin: 05/23/21 12:15 Dose: 2 unit Documented by: Ipratropium [place] (Ipratropium 0.02% 0.5 Mg/2.5 Ml Neb Soln) 0.5 mg NEB Q6HRRT PRN PRN Reason: wheezing/dyspnea Melatonin (Melatonin 3 Mg Tab) 9 mg PO BEDTIME [facility] Last Admin: 05/22/21 20:30 Dose: 9 mg Documented by: Metoprolol Succinate (Metoprolol Succinate 50 Mg Tab.Er) 50 mg PO DAILY [facility] Last Admin: 05/22/21 08:53 Dose: 50 mg Documented by: Metoprolol Succinate (Metoprolol Succinate 100 Mg Tab.Er) 100 mg PO DAILY [facility] Last Admin: 05/23/21 08:42 Dose: 100 mg Documented by: Metoprolol Tartrate (Metoprolol Tartrate 50 Mg Tab) 50 mg PO ONETIME ONE Stop: 05/21/21 23:11 Last Admin: 05/21/21 23:36 Dose: 50 mg Documented by: Metoprolol Tartrate (Metoprolol Tartrate 50 Mg Tab) 50 mg PO ONETIME ONE Stop: 05/22/21 21:37 Last Admin: 05/22/21 21:48 Dose: 50 mg Documented by: Morphine Sulfate (Morphine 2 Mg/Ml Syringe) 1 mg IVPUSH Q4H PRN PRN Reason: Pain Last Admin: 05/23/21 10:23 Dose: 1 mg Documented by: Pneumococcal Polyvalent Vaccine (Pneumococcal Polyvalent-23 Vaccine 0.5 Ml Sdv) 0.5 ml IM .ONCE ONE Stop: 05/23/21 11:01 Last Admin: 05/23/21 11:12 Dose: 0.5 ml Documented by: Sterile Water (Water For Injection, Sterile 20 Ml Sdv) 20 ml INJECT ONETIME ONE Stop: 05/20/21 15:45 Last Admin: 05/20/21 16:05 Dose: 20 ml Documented by: Trazodone HCl (Trazodone 50 Mg Tab) 50 mg PO BEDTIME [facility] Last Admin: 05/22/21 20:30 Dose: 50 mg Documented by:
--- NOTE | 2021-05-24 19:16 | PCM.SN.2 ---
<SergoDiane - Last Filed: 05/24/21 19:07> - Free Text/Narrative Note: The patients called today with concerns that her was in "active Afib" and that he had an increased heart rate. After calling the patient on two separate occasions, he called back and I had a conversation with him. I asked him about his heart rate, for which he recorded two values of 77 and 82. I asked about chest pain and palpitations, which the patient denied. I informed the patient that if he has chest pain, palpitations, shortness of breath, or increased heart rate above 110, to go to the nearest ER to be worked up. There was also a concern over cough syrup and I asked the patient if he would like a prescription sent to his nearest pharmacy, and that the cough syrup comes in formulations that are prescription and nonprescription (Robitussin with codeine vs non-codeine). The patient insisted that he was coughing less and that if needed he would go to the pharmacy to purchase the nonprescription type. Time Documentation <Roseline Weber - Last Filed: 05/25/21 12:06> - Free Text/Narrative Note: I have seen and evaluated the patient and agree with the residents note unless specified in my note Time Documentation
--- NOTE | 2021-05-25 14:13 | ECHO ---
EXAM DATE: 05/20/21 PATIENT'S AGE: 66 The ECHO report has been scanned into [employer] and can be seen in this patient's EMR (Electronic Medical Record) under the REPORTS section. The report has also been scanned into PACS. [facility]
== END 2021-05-23 15:40 | disposition home or self-care (01) | DRG 195 ==
LOC: MW.ED 11:36 → MW.MS 15:48
PROVIDERS: ADMIT Internal Medicine; ATTEND Internal Medicine
PROC: 3E0234Z Introduction of Serum, Toxoid and Vaccine into Muscle, Percutaneous Approach (ICD-10-PCS; principal; 2021-05-23)
DX: J18.9 Pneumonia, unspecified organism (principal); I48.0 Paroxysmal atrial fibrillation; M54.5 Low back pain; M54.6 Pain in thoracic spine; N28.9 Disorder of kidney and ureter, unspecified; Z79.899 Other long term (current) drug therapy; I10 Essential (primary) hypertension; Z96.659 Presence of unspecified artificial knee joint; Z20.822 Contact with and (suspected) exposure to COVID-19; E11.9 Type 2 diabetes mellitus without complications; Z90.49 Acquired absence of other specified parts of digestive tract; Z23 Encounter for immunization; Z90.5 Acquired absence of kidney
CPT/HCPCS: 36415; 71045; 71045-26; 74176; 74176-26; 80053; 80143; 81001; 82947; 83605; 83690; 84484; 85025; 85384; 85610; 85730; 87040; 90732; 93306; 94640; 99221; 99232; 99239; 99283; 99285-25; A9270-GY; G0009; J0456; J0696; J1644; J1815-GY; J2270; J3490; J7030; J7050; J7120; J7620-GY; U0002

== ENCOUNTER 2024-12-16 13:12 | Emergency (ER) | payer MEDICARE, OTHER ==
[2024-12-16 15:45] VITALS: BP 136/86; PULSE 82
== END 2024-12-16 15:45 | disposition home or self-care (01) ==
LOC: MW.ED 13:12
DX: S89.91XA Unspecified injury of right lower leg, initial encounter (principal); I10 Essential (primary) hypertension; E11.9 Type 2 diabetes mellitus without complications; Z79.899 Other long term (current) drug therapy; Z79.84 Long term (current) use of oral hypoglycemic drugs; Z79.01 Long term (current) use of anticoagulants; V58.4XXA Person boarding or alighting a pick-up truck or van injured in noncollision transport accident, initial encounter; Y93.89 Activity, other specified
CPT/HCPCS: 73562-26-RT; 73562-RT; 99282; 99283

== ENCOUNTER 2025-02-20 22:57 | Emergency (ER) | payer MEDICARE, OTHER ==
[2025-02-20] MEDS ORDERED: Labetalol 100 MG/20 ML MDV IVPUSH ONE (23:13)
[2025-02-20] MEDS ORDERED: Sodium Chloride 0.9% 10 ML Syringe FLUSH PRN (23:14)
[2025-02-20] MEDS ORDERED: Sodium Chloride 0.9% 2.5 ML Syringe FLUSH PRN (23:14)
[2025-02-20] MEDS ORDERED: Sodium Chloride 0.9% 20 ML SDV IV PRN (23:14)
[2025-02-20 23:34] LABS: HEMATOCRIT 40.6 % (42.0-52.0); HEMOGLOBIN 13.9 g/dL (14.0-18.0); MEAN CORPUSCULAR HEMOGLOBIN 30.3 pg (28.0-32.0); MEAN CORPUSCULAR HGB CONC 34.2 g/dL (32.0-36.0); MEAN CORPUSCULAR VOLUME 88.6 fL (83.0-99.0); MEAN PLATELET VOLUME 9.2 fL (9.4-12.4); PLATELET COUNT,PLT 284 K/uL (150-400); RED BLOOD CELL COUNT 4.58 M/uL (4.52-5.90); WHITE BLOOD CELL COUNT,WBC 15.12 K/uL (3.9-11.3)
[2025-02-20] MEDS: Diltiazem 25 MG/5 ML SDV IVPUSH ONE (23:42)
[2025-02-20 23:54] LABS: CARBON DIOXIDE,CO2 19.9 mmol/L (21.0-32.0); CREATININE 2.7 mg/dL (0.8-1.3); EST CRCL DRUG DOSING (CG) 26.66 mL/min; MAGNESIUM 1.6 mg/dL (1.8-2.4); POTASSIUM,K 4.4 mmol/L (3.5-5.1)
== END 2025-02-21 01:33 | disposition home or self-care (01) ==
LOC: MW.ED 22:57
DX: I48.0 Paroxysmal atrial fibrillation (principal); I10 Essential (primary) hypertension; E11.9 Type 2 diabetes mellitus without complications; Z79.01 Long term (current) use of anticoagulants; Z79.899 Other long term (current) drug therapy
CPT/HCPCS: 36415; 80048; 83735; 85027; 96374; 99285; J3490; 93010; 99284